=== PATIENT | male | born 1955 | race Caucasian/White ===

== ENCOUNTER 2017-08-19 10:09 | Inpatient (IN) ==
[2017-08-19] MEDS ORDERED: Sodium Bicarbonate 50 MEQ/50 ML VIAL IVC ONE (10:10)
[2017-08-19] MEDS ORDERED: Mannitol 25% vial 12.5 GM/50 ML VIAL IVP ONE (10:10)
[2017-08-19] MEDS ORDERED: Lidocaine 2% Syringe 100 MG/5 ML IV ONE (10:10)
[2017-08-19] MEDS ORDERED: *HR* Phenylephrine 10 MG/ML VIAL IVC ONE (10:10)
[2017-08-19] MEDS ORDERED: *HR* Magnesium Sulfate 2 GM/50 ML PIGGYBACK IVPB ONE (10:10)
[2017-08-19] MEDS ORDERED: Albumin Human 25% 25 GM/100 ML IV.SOLN IV ONE (10:10)
[2017-08-19] MEDS ORDERED: Heparin 1,000 UNITS/500 mL IV.SOLN IVC ONE (10:10)
[2017-08-19] MEDS ORDERED: 0.9 % Sodium Chloride 1,000 ML ONE ×2 (10:41→11:38)
[2017-08-19] MEDS: 0.9 % Sodium Chloride 1,000 ML IVC SCH (10:42)
[2017-08-19] MEDS ORDERED: Verapamil 5 MG/2 ML VIAL ONE (11:38)
[2017-08-19] MEDS ORDERED: Nitroglycerin 1,000 MCG/10 ML VIAL IV ONE (11:39)
[2017-08-19] MEDS ORDERED: *HR* Heparin 10,000 UNIT/10 ML VIAL ONE (11:39)
[2017-08-19] MEDS ORDERED: Heparin 1,000 UNITS/500 mL 500 ML ONE (11:39)
[2017-08-19] MEDS ORDERED: *HR* FentaNYL (PF) 100 MCG/2 ML VIAL ONE (12:11)
[2017-08-19] MEDS ORDERED: *HR* Midazolam HCl 2 MG/2 ML VIAL ONE ×2 (12:11→12:26)
--- NOTE | 2017-08-19 12:14 | Pre-Sedation Evaluation ---
Pre-sedation evaluation - Pre-sedation checklist Date of procedure: 08/19/17 Procedure: [facility] Recent Vitals: Last Vital Signs Temp 97 F L 08/19/17 10:31 Pulse 67 08/19/17 10:31 Resp 18 08/19/17 10:31 BP 137/94 08/19/17 10:31 Pulse Ox 94 08/19/17 10:31 H&P (including ROS) documented in medical record: Yes Previous reaction to sedatives/anesthetics: No Dietary Status: NPO after Midnight Dentition: No loose teeth or bridges, full dentition ASA Classification *see protocol: CLASS II-Mild systemic disease Plan of Care: Pt appropriate candidate for procedure/moderate/conscious sedation , Risks/benefits of procedure/sedation discussed w/ patient/family
--- NOTE | 2017-08-19 12:14 | History & Physical Report ---
Date of Encounter: 08/19/17 Time of Encounter: 12:30 24 Hour HP Update - Instructions Instructions: If the History and Physical is less than 30 days old and was completed prior to A.M. admission and or procedure and has NOT been updated on calendar day of procedure please complete this update prior to performing procedure. - Update Patient reports changes in Medical Condition: No Changes in examination, assessment, or condition: No Changes in Medication: No Preop tests/diagnostics Reviewed: Yes Surgery Remains Indicated: Yes Consent for Planned Operative Procedure(s) Verified: Yes
--- NOTE | 2017-08-19 13:21 | Discharge Summary ---
Outpatient Proc Discharge Plan - Plan Additional Instructions: RISK FACTORS: STOP SMOKING: If you smoke, STOP. Smoking or tobacco use significantly increases your risk of heart disease because nicotine causes the arteries to narrow or constrict. It also causes fats to stick to the artery. Your chances of having a heart attack are greatly increased if you continue to smoke. For more information, call the education line for smoking cessation 9-382-OQVHHKX EAT A LOW FAT/CHOLESTEROL/SODIUM DIET: This diet may help reduce your chances of having a heart attack. LIFTING: With affected extremity: Avoid bending, pushing off and lifting more than 2 pounds for 24 hours The following 48 hours, avoid lifting anything more than 5 pounds Avoid strenuous activity or repetitive motions ACTIVITY: You may walk or climb stairs as tolerated You can resume sexual activity as tolerated In general, you are encouraged to engage in a minimum of 30 minutes or more of moderate intensity physical activity, such as brisk walking, daily or at least 3 -4 times weekly BATHING Do not submerge the site into water (bath tub, hot tub, swimming pool, dishes) for 1 week. This can be a source for infection into the blood stream. You may shower after 24 hours SITE CARE: After 24 hours, you may remove the dressing and leave the site open to air. Keep the site clean and dry. Clean gently and pat dry. You can expect bruising and tenderness that gradually resolve within a week or two. Return to work as instructed per your physician Resume driving as instructed per physician Keep all scheduled follow up appointments Resume medications as instructed IMPORTANT: If prescribed a Platelet Aggregation Inhibitor such as, Plavix, Brilinta or Effient: Duration of therapy is minimum one year These medications are often used in combination with Aspirin in prevention of future heart attacks Never discontinue unless consult with your Farmworker [employer] STROKE (CVA) Risk factors for a stroke are: Age, cigarette smoking, diabetes, excessive alcohol consumption, family history, high blood pressure, overweight, physical inactivity, prior stroke, heart attack, diagnosis of carotid artery stenosis or other artery disease. Warning signs: Sudden numbness or weakness of the face, arm or leg; especially on one side of the body, sudden confusion, trouble speaking or understanding, sudden trouble seeing in one or both eyes, sudden trouble walking, dizziness, loss of balance or coordination, sudden severe headache with no cause. Call 911 or go to the Emergency Room. CONGESTIVE HEART FAILURE: If you have been diagnosed with Congestive Heart Failure (CHF) and your symptoms return, make an appointment with your physician Weigh yourself daily. Notify your physician if you have a weight gain of two or more pounds in one day or five or more pounds in one week. If you experience any difficulty breathing, please call 911 BLEEDING: Although the risk of bleeding is minimal, it can happen. If you have any bleeding from the site, apply firm pressure above the puncture site for 10-15 minutes. If the bleeding does not stop, continue manual pressure and call 911 Contact [facility] ( ) if: You develop a fever greater than 101 degrees Fahrenheit Your site becomes reddened or has any drainage You have an increase in pain or burning at the site or if a large knot forms at the site. If you experience chest pain, shortness of breath, dizziness, or extreme tiredness, stop the activity and rest. Please notify [facility] office if you experience any of these symptoms and they are not relieved by rest please call 911! Home Medications: LORazepam [Ativan] 1 mg PO BID PRN 08/19/17 [History] Meloxicam [Mobic] 15 mg PO DAILY 08/19/17 [History] Metoprolol [Lopressor] 25 mg PO BID 08/19/17 [History] Simvastatin [Zocor] 20 mg PO HS 08/19/17 [History] Venlafaxine [Effexor] 225 mg PO BID 08/19/17 [History]
--- NOTE | 2017-08-19 13:51 | Cardiothoracic Consult Note ---
Date of Encounter: 08/19/17 Time of Encounter: 13:47 Assessment and Plan (1) Coronary artery disease Current Visit: Yes Status: Acute The assessment and plan as outlined above was discussed with the patient and/or family members who expressed understanding and agreement. All questions were answered. The patient has left main disease and triple-vessel disease and is a candidate for coronary artery bypass grafting. Risks of surgery include , infection, bleeding, myocardial infarction, stroke, clots around the heart, renal or respiratory failure, acute or chronic graft closure, phrenic nerve injury and sternal dehiscence. The procedure, its risks, benefits and alternatives were explained and he wishes to consider. I will check a echocardiogram to assess bowel function. If he is agreeable, we can do his surgery tomorrow or Thursday. Qualifiers: Coronary Disease-Associated Artery/Lesion type: [place] artery [place] vs. transplanted heart: [place] heart Associated angina: with unstable angina Qualified Code(s): I25.110 - Atherosclerotic heart disease of [place] coronary artery with unstable angina pectoris - History of Present Illness History of present illness: Mr. Davidson is a 61 year old male The patient is a 61-year-old gentleman who will turn 62 on Thursday. He has been having daily chest pain and heaviness, which occurs with exertion and at rest. No known history of myocardial infarction. Cardiac catheterization done today revealed a 70% left main lesion. He has an 80% LAD lesion. His circumflex is 100 % and may or may not be graftable. His right coronary artery has a 80% blocked in the midportion, a 70% distal block in 100% block of the posterolateral branch. Past medical history is notable for no history of diabetes or hypertension. He does have a history of hypercholesterolemia, but has not been taking any medication for this. Family history is positive for coronary artery disease. Social history. He lives near [place] with his family. 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 He used to smoke, but quit 20 years ago. Does not drink alcohol. Review of systems is notable for hearing loss in both ears, which is worse in the left ear. He also has decreased vision in both eyes. No history of stroke or TIA. No history of saphenous vein varicosities or strippings. Past Med Surg Social Fam HX - Past Medical History Medical history: hyperlipidemia Psychiatric history: anxiety, depression - Past Surgical History Surgical History: orthopedic, other - Social History Smoking Status: Former smoker Alcohol use: none Drug use: none Medications and Allergies LORazepam [Ativan] 1 mg PO BID PRN 08/19/17 [History] Meloxicam [Mobic] 15 mg PO DAILY 08/19/17 [History] Metoprolol [Lopressor] 25 mg PO BID 08/19/17 [History] Simvastatin [Zocor] 20 mg PO HS 08/19/17 [History] Venlafaxine [Effexor] 225 mg PO BID 08/19/17 [History] 3 Allergy/AdvReac Type Severity Reaction Status Date / Time Penicillins Allergy Hives Verified 08/19/17 10:18 All Systems Review: A 10-system review of systems was performed and is negative for pertinent findings except as documented above in the HPI. Physical Examination Vital Signs, Last 4 Hours Temp Pulse Resp BP Pulse Ox 08/19/17 10:31 97 F L 67 18 137/94 94 Pupils are equal, round and reactive to light and accommodation. He is edentulous. Neck is supple. Trachea in the midline. No thyromegaly or carotid bruits. Lungs are clear to percussion and auscultation. Heart is in a regular rate and rhythm. Abdomen is benign. No tenderness, rebound or guarding. Extremities without edema. 2+ pulses. No saphenous vein varicosities or strippings. Cranial nerves, motor and sensory intact. He is awake, alert and oriented 3. Consult Discharge Plan - Plan Additional Instructions: RISK FACTORS: STOP SMOKING: If you smoke, STOP. Smoking or tobacco use significantly increases your risk of heart disease because nicotine causes the arteries to narrow or constrict. It also causes fats to stick to the artery. Your chances of having a heart attack are greatly increased if you continue to smoke. For more information, call the education line for smoking cessation 1-392-BNOXTGY EAT A LOW FAT/CHOLESTEROL/SODIUM DIET: This diet may help reduce your chances of having a heart attack. LIFTING: With affected extremity: Avoid bending, pushing off and lifting more than 2 pounds for 24 hours The following 48 hours, avoid lifting anything more than 5 pounds Avoid strenuous activity or repetitive motions ACTIVITY: You may walk or climb stairs as tolerated You can resume sexual activity as tolerated In general, you are encouraged to engage in a minimum of 30 minutes or more of moderate intensity physical activity, such as brisk walking, daily or at least 3 -4 times weekly BATHING Do not submerge the site into water (bath tub, hot tub, swimming pool, dishes) for 1 week. This can be a source for infection into the blood stream. You may shower after 24 hours SITE CARE: After 24 hours, you may remove the dressing and leave the site open to air. Keep the site clean and dry. Clean gently and pat dry. You can expect bruising and tenderness that gradually resolve within a week or two. Return to work as instructed per your physician Resume driving as instructed per physician Keep all scheduled follow up appointments Resume medications as instructed IMPORTANT: If prescribed a Platelet Aggregation Inhibitor such as, Plavix, Brilinta or Effient: Duration of therapy is minimum one year These medications are often used in combination with Aspirin in prevention of future heart attacks Never discontinue unless consult with your Senior Bookkeeper STROKE (CVA) Risk factors for a stroke are: Age, cigarette smoking, diabetes, excessive alcohol consumption, family history, high blood pressure, overweight, physical inactivity, prior stroke, heart attack, diagnosis of carotid artery stenosis or other artery disease. Warning signs: Sudden numbness or weakness of the face, arm or leg; especially on one side of the body, sudden confusion, trouble speaking or understanding, sudden trouble seeing in one or both eyes, sudden trouble walking, dizziness, loss of balance or coordination, sudden severe headache with no cause. Call 911 or go to the Emergency Room. CONGESTIVE HEART FAILURE: If you have been diagnosed with Congestive Heart Failure (CHF) and your symptoms return, make an appointment with your physician Weigh yourself daily. Notify your physician if you have a weight gain of two or more pounds in one day or five or more pounds in one week. If you experience any difficulty breathing, please call 911 BLEEDING: Although the risk of bleeding is minimal, it can happen. If you have any bleeding from the site, apply firm pressure above the puncture site for 10-15 minutes. If the bleeding does not stop, continue manual pressure and call 911 Contact [facility] ( ) if: You develop a fever greater than 101 degrees Fahrenheit Your site becomes reddened or has any drainage You have an increase in pain or burning at the site or if a large knot forms at the site. If you experience chest pain, shortness of breath, dizziness, or extreme tiredness, stop the activity and rest. Please notify [facility] office if you experience any of these symptoms and they are not relieved by rest please call 911! Referrals: Santa Richardson CNP [Primary Care Provider] - Segundo Fortune MD [Partnered Physician] - 09/11/17 3:30 pm (Follow up with Dr. Fortune in the [place] office. )
[2017-08-19] MEDS ORDERED: *HR* Heparin 5,000 UNIT/ML VIAL IVP PRN ×2 (14:45)
[2017-08-19] MEDS ORDERED: Heparin 25,000 UNIT/500 ML D5W 25,000 UNIT/500 ML BAG IVC SCH (14:45)
[2017-08-19] MEDS ORDERED: *HR* Heparin 5,000 UNIT/ML VIAL IVP ONE (14:45)
[2017-08-19] MEDS ORDERED: Clindamycin 900 MG/50 ML 900 MG/50 ML IV.SOLN IVPB ONE (14:46)
--- NOTE | 2017-08-19 15:59 | Invasive Diagnostic Lab Proc ---
Name: Cipriano Davidson Date of Study: 08/19/2017 Date: 1955 Ht: 68.0in Medical Record#: [id number] Age: 61 Wt: 223.55lb Gender: Male BSA: 2.14 Order #: [id number] BMI: 34 Physicians Procedure Physician: Segundo Fortune MD, [facility] Referring MD: Konstantin Referring MD: Staff Name Position Time In Orquidea Gaines RN [employer] Professor 12:00 PM Katherine Quiroga RT (R) Monitor 12:00 PM Saadia Cole RT Scrub 12:00 PM Indications Indication Abnormal Test - Stress Procedures Performed Procedure L HRT ARTERY/VENTRICLE ANGIO Pre-Procedure Checklist Informed consent is complete signed and on chart. H&P is on chart. ID band is on and ID verified with patient. Patient NPO for procedure The procedure was described for the patient and questions were answered. Blood Pressure: 137/94 ECG is on chart. Rhythm: NSR Plan of Care Patient will tolerate the procedure without complications. Adequate level of comfort will be maintained. Hemodynamics will remain stable Patient will recover from procedure without complications. Respiratory function will be maintained. Cardiac rhythm will remain stable. Patient temperature will be maintained. Patient and/or family have verbalized understanding of the procedure. Patient Education Chief Complaint/Reason for Test: Cardiac Cath Developmental Category: Adult (18-64 years) Developmentally Appropriate for Age: Yes Learning Barriers: None Education Needs: Procedure Education Method: Verbal Information Taught: Cardiac Cath Educational Evaluation: Able to repeat information Intravenous Access Time IV Size Location DC'd Fluid/Drip Rate Units RN 10:29 AM Started with 20g 1 1/4" Lt Antecubital 0.9NaCl 50 ml/hr Jamil Eric RN Allergies Penicillins Vital Signs Time BP (mmHg) HR (bpm) O2 Sat. RR (bpm) LOC 10:27 AM 137 / 94 65 94 % 14 5 = Fully awake and oriented or at pre-proc level 12:05 PM / % 5 = Fully awake and oriented or at pre-proc level 12:05 PM / % 5 = Fully awake and oriented or at pre-proc level 12:21 PM / % 4 = Oriented but drowsy 12:21 PM / % 4 = Oriented but drowsy 12:12 PM 168 / 88 75 96 % 21 12:17 PM 155 / 80 69 92 % 13 12:22 PM 164 / 80 62 95 % 13 12:27 PM 140 / 79 70 95 % 15 12:32 PM 122 / 76 67 94 % 15 12:45 PM 140 / 67 65 92 % 16 5 = Fully awake and oriented or at pre-proc level 01:00 PM 128 / 74 64 93 % 16 5 = Fully awake and oriented or at pre-proc level 01:15 PM 150 / 81 62 93 % 18 5 = Fully awake and oriented or at pre-proc level 01:30 PM 143 / 84 63 95 % 16 5 = Fully awake and oriented or at pre-proc level 01:45 PM 153 / 95 64 96 % 16 5 = Fully awake and oriented or at pre-proc level 02:06 PM 153 / 95 70 97 % 16 5 = Fully awake and oriented or at pre-proc level 02:22 PM 145 / 92 61 92 % 16 5 = Fully awake and oriented or at pre-proc level 02:44 PM 136 / 82 61 94 % 16 5 = Fully awake and oriented or at pre-proc level 03:00 PM 149 / 83 68 95 % 18 5 = Fully awake and oriented or at pre-proc level Procedural Medications Time Medication Dose Units Method Given By 12:13 PM Oxygen 2 L/min nasal cannula Orquidea Gaines RN 12:13 PM Versed 2 mg Intravenous Orquidea Gaines RN 12:14 PM Fentanyl 50 mcg Intravenous Orquidea Gaines RN 12:18 PM Oxygen 4 L/min nasal cannula Orquidea Gaines RN 12:24 PM Lidocaine 2% 0.5 ml Subcutaneous Segundo Fortune MD, FACC 12:26 PM Heparin 4000 units Nitroglycerin 200 mcg Verapamil 2.5 mg Intraarterial Segundo Fortune MD, FACC 12:26 PM Versed 1 mg Intravenous Orquidea Gaines RN 12:26 PM Fentanyl 25 mcg Intravenous Orquidea Gaines RN ASA Classification: CLASS II- Mild systemic disease (i.e. well-controlled diabetes, hypertension, asthma, cigarette smoking) Stephanie Score Preprocedure Postprocedure Activity 2- Moves 4 extremities sustained head lift Activity 2- Moves 4 extremities sustained head lift Circulation 2- SBP +/= 20 points of pre-anesthetic level Circulation 2- SBP +/= 20 points of pre-anesthetic level Consciousness 2- Awake and alert oriented x 3 Consciousness 2- Awake and alert oriented x 3 O2 Saturation 2- Able to maintain O2 satruation of 92% on room air O2 Saturation 2- Able to maintain O2 satruation of 92% on room air Respiratory 2- Able to deep breathe and cough well Respiratory 2- Able to deep breathe and cough well Total Score 10 Total Score 10 Contrast Agent: Isovue Diagnostic Contrast: 60 ml Total Contrast: 60 ml Fluoro Dose: 225 mGy Procedure Log Time Note Enter By 11:42 AM CathStat 12:00 PM Orquidea Gaines RN Position: [employer] Professor Time in: 12:00 [facility] 12:00 PM Katherine Quiroga RT (R) Position: Monitor Time in: 12:00 [facility] 12:00 PM Saadia Cole RT Position: Scrub Time in: 12:00 [facility] 12:00 PM Patient charges- Angio tray pack, Navilyst 3mm J, Pulse Oximetry and [facility] PM IV Supplies used: J loop Angio Cath. [facility] 12: PM Pt arrived to bed laborer 2 at 12:01 [facility] 12:05 PM Time: 12:05 Patient comfortable and pain free: Yes [facility] 12:05 PM Time: 12:05LOC: 5 = Fully awake and oriented or at pre-proc [facility] 12:08 PM Physician arrived 12:07 [facility] 12:08 PM Meet and greet completed [facility] 12:08 PM Sign in performed according to hospital policy. [facility] 12:08 PM Procedure start 12:08 [facility] 12:08 PM ASA Class CLASS II- Mild systemic disease (i.e. well-controlled diabetes, hypertension, asthma, cigarette smoking) [facility] 12:11 PM Vitals capture started with the following parameters, Patient=Adult, Interval=5 min, Initial Ojktvcrq=306 mmHg, Deflation Rate=5 mmHg, Cuff placed on Right Arm 12:11 PM Recorded ECG: HR=77 Condition=Condition 1 12:12 PM HR=75 bpm, XPNN=722/88 mmhg, SpO2=96.0 %, Resp=21 B/min, Comment=SR w/ PVC's 12:13 PM Time: 12:13 Oxygen on at 2 L/min per nasal cannula by Orquidea Gaines RN [facility] PM Time: 12: Versed 2 mg Intravenous Given by Orquidea Gaines RN [facility] 12:14 PM Time: 12:14 Fentanyl 50 mcg Intravenous Given by [facility]quidea [facility]aines [facility] 12:[facility] PM Time: 12:05 Patient comfortable and pain free: Yes [facility] 12:14 PM Time: 12:05LOC: 5 = Fully awake and oriented or at pre-proc level [facility] 12:14 PM Case Delayed No [facility] 12:15 PM Hair removed from procedure site in holding area using clippers. Right wrist and Right Groin prepped with Chloraprep by Katherine Quiroga RT (R), safety strap applied then patient was draped. Skin intact. [facility] 12:17 PM HR=69 bpm, FXXN=851/80 mmhg, SpO2=92.0 %, Resp=13 B/min, Comment=SR w/ PVC's 12:18 PM Time: 12:18 Oxygen on at 4 L/min per nasal cannula by Orquidea Gaines RN [facility] 12:21 PM Time: 12:20 Patient comfortable and pain free: Yes [facility] 12: PM Time: 12:21LOC: 4 = [facility]ed [facility]y [facility] 12:22 PM HR=62 bpm, XCXC=205/80 mmhg, SpO2=95.0 %, Resp=13 B/min, Comment=SR 12:22 PM Pressure channel 1 zeroed. 12:24 PM Time out performed according to hospital policy 12: PM Time: 12:24 0.5 ml Lidocaine 2% to right radial Subcutaneous Given by Segundo Fortune MD, [facility] 12:25 PM Access obtained by percutaneous puncture. 6Fr 10cm Terumo Glidesheath sheath placed in right Radial artery. [id number] [facility] 12: PM Time: 12: Patient given 4,000 units Heparin, 200 mcg Nitroglycerin, and 2.5 mg Verapamil Intraarterial by Segundo Fortune MD, [facility]. This is given to reduce risk of vessel spasm and thrombosis. [facility] 12: PM 0.035 260cm Navilyst 3mmJ wire [id number] [facility] 12: PM 5Fr TIG catheter inserted over the wire [facility] : PM Time: : Versed 1 mg Intravenous Given by Orquidea Gaines RN [facility] 12:26 PM Time: 12:26 Fentanyl 25 mcg Intravenous Given by Orquidea Gaines RN [facility] 12:27 PM wire removed. tsoummers 12:27 PM HR=70 bpm, MLNY=100/79 mmhg, SpO2=95.0 %, Resp=15 B/min, Comment=SR 12:27 PM Recorded Pressure: Ao, HR=76, Condition=Condition 1 (Aorta) Ao 98/68/83 12:28 PM RCA angiography performed in multiple views. [email or web address] 12:29 PM LCA angiography performed in multiple views. tsoummers 12:29 PM Recorded Pressure: Ao, HR=73, Condition=Condition 1 (Aorta) Ao 102/72/88 12:31 PM Lesion found in Mid RCA. Pre Stenosis: 90 Pre RAFFY Flow: tsoummers 12:31 PM Lesion found in LMCA. Pre Stenosis: 70 Pre RAFFY Flow: tsoummers 12:31 PM Catheter removed tsoummers 12:31 PM 5Fr Pigtail catheter inserted over the wire DNC tsoummers 12:32 PM Lesion found in Distal RCA. Pre Stenosis: 80 Pre RAFFY Flow: tsoummers 12:32 PM Lesion found in Proximal RCA. Pre Stenosis: 50 Pre RAFFY Flow: tsoummers 12:32 PM Recorded Pressure: LV, HR=70, Condition=Condition 1 (Left Ventricle) LV 103/49/38 12:32 PM HR=67 bpm, GKVI=109/76 mmhg, SpO2=94.0 %, Resp=15 B/min 12:32 PM Recorded Pressure: LV, HR=83, Condition=Condition 1 (Left Ventricle) LV 123/5/8 12:32 PM Catheter selectively placed in left ventricle tsoummers 12:32 PM Bolus angiogram of left Ventricle complete: 10 ml/sec for a total of 30 mls tsoummers 12:33 PM Recorded Pressure: LV, Ao, HR=77, Condition=Condition 1 (Left Ventricle) LV 121/13/8, (Aorta) Ao 116/58/84 12:33 PM Catheter removed tsoummers 12:33 PM Coronary Dominance: right tsoummers 12:34 PM Lesion found in Mid LAD. Pre Stenosis: 80 Pre RAFFY Flow: tsoummers 12:34 PM Lesion found in Distal LAD. Pre Stenosis: 60 Pre RAFFY Flow: tsoummers 12:34 PM Lesion found in Mid Circumflex. Pre Stenosis: 100 Pre RAFFY Flow: tsoummers 12:36 PM Lesion found in Right PLB. Pre Stenosis: 100 Pre RAFFY Flow: tsoummers 12:36 PM Time: 12:21LOC: 4 = Oriented but drowsy tsoummers 12:36 PM Time: 12:21 Patient comfortable and pain free: Yes tsoummers 12:36 PM Procedure completed at 12:36 tsoummers 12:37 PM Sign out completed: Radiation Dose 225.18 mGy Fluoro Time: 1.6 Isovue 370 - 200ml contrast 60 ml given by Segundo Fortune MD, [facility]. Complications: NoneCardiac Rehab Consult needed: YesConfirmed administered medications: Yes tsoummers 12:37 PM Conversation between Interventionalist and CT Surgeon. tsoummers 12:37 PM Isovue 370 - 200ml,1 Bottle(s) used. tsoummers 12:37 PM Arterial sheath pulled, Vasc Band closure device used and was Successful S/N. tsoummers 12:37 PM 9 ml air in Vasc Band. tsoummers 12:37 PM Estimated Blood Loss: minimal tsoummers 12:37 PM Post ECG NSR tsoummers 12:38 PM Post Blood Pressure 122/76 tsoummers 12:39 PM 12:39 Post Pulses Rt Radial 1+ tsoummers 12:39 PM Information taught Cardiac Cath tsoummers 12:39 PM Education needs Procedure, Plan of Care, and Responsibilities of Patient in Care tsoummers 12:39 PM Learning barriers :None tsoummers 12:39 PM Education Methods Verbal tsoummers 12:39 PM Education evaluation Able to repeat information tsoummers 12:39 PM Site status No bleeding/hematoma - Rt Wrist as reported by Saadia Cole RT at 12:39 tsoummers 12:40 PM Report given to Martina GAMEZ Pt taken to Holding room Room #4. 12:40 tsoummers 12:40 PM Plavix, Effient or Brilinta given No tsoummers 12:40 PM Delay to floor No tsoummers 12:40 PM Family placed in consult room. tsoummers 12:40 PM Patient out of room: 12:40 tsoummers 12:40 PM Complications: None [facility] 12:40 PM Fluoro Time: 1.6 [facility] 12:40 PM Isovue 370 - 200ml contrast 60 ml given by Segundo Fortune MD, [facility]. [facility] 12:40 PM Radiation Dose 225.18 mGy [facility] 12:41 PM Left Main Coronary Artery with 70% [facility] 12[facility] PM Mid/Distal Left Anterior Descending Coronary Artery and diagonal branches with 80% stenosis. If graft is supplying this area, 0 % stenosis [facility] 12:42 PM Circumflex, Obtuse Marginal, Left Posterior Descending, and Left Posterolateral Coronary Arteries with 100 % stenosis. If graft is supplying this area, 0 % stenosis [facility] 12:42 PM Right Coronary, Right Posterior Descending Arteries with Right Posterolateral and Acute Marginal branches with 100 % stenosis. If graft is supplying this area, 0 % stenosis [facility] 12:[address] Ward [facility] 01:[address] Ward at bedside, requests stat echo. Bea from non invasive notified [email or web address] 01:52 PM family remains at bedside [email or web address] 02:05 PM Activity: 2 Circulation: 2 Consciousness: 2 O2 Saturation: 2 Respiration: 2 [email or web address] 02:05 PM Patient ambulated with assistance. Insertion site without bleeding or hematoma. Pulses unchanged. [email or web address] 02:21 PM Alysha at bedside doing echo [email or web address] 03:07 PM PCXR taken [email or web address] 03:07 PM Colleen, RN at bedside [email or web address] 03:07 PM vb removed, dressing applied [email or web address] 03:46 PM Delay to floor Bed availability [email or web address] 03:46 PM Complications: None [email or web address] 03:46 PM Report given to Spencer GAMEZ Pt taken to Holding room Room #2ne 25. 15:46 [email or web address] 03:46 PM Patient out of room: 15:46 [email or web address] Complications Complication None None Hemodynamics Pressures Site Systolic/A Wave Diastolic/V Wave Mean AO 98 68 83 AO 102 72 88 LV 103 49 38 LV 123 5 8 LV 121 13 8 AO 116 58 84 Post Procedure Information Blood Pressure: 122/76 mmHg Rhythm: NSR Post procedural instructions were given Surgery consult for CABG Closure Device Time Device Success/Fail 08/19/2017 12:37:00 PM Mechanical Compression Successful Site Checks Time Location Status Staff Sheath In? Note 12:39 PM Rt Wrist No bleeding/hematoma Saadia Cole RT 12:45 PM Rt Wrist No bleeding/ No Hematoma Jamil Eric RN Vasc band in place. 01:00 PM Rt Wrist No bleeding/ No Hematoma Jamil Eric RN Vasc band in place. 01:15 PM Rt Wrist No bleeding/ No Hematoma Jamil Eric RN 2 ml air deflated. 01:30 PM Rt Wrist No bleeding/ No Hematoma Martina Fernandez RN 01:45 PM Rt Wrist No bleeding/ No Hematoma Martina Fernandez RN 2cc air deflated 02:05 PM Rt Wrist No bleeding/ No Hematoma Martina Fernandez RN 2cc air deflated 02:21 PM Rt Wrist No bleeding/ No Hematoma Martina Fernandez RN 2cc air deflated 02:44 PM Rt Wrist No bleeding/ No Hematoma Martina Fernandez RN 1cc air deflated, vb empty 03:00 PM Rt Wrist No bleeding/ No Hematoma Jamil Eric RN Vasc band off, dressing d/i 03:45 PM Rt Wrist No bleeding/ No Hematoma Jamil Eric RN Dressing d/i Pulses Time Site Pre-Procedure Post-Procedure Note 08/19/2017 10:29:00 AM Bilateral radial 2+ 08/19/2017 10:29:00 AM Bilateral DP & PT 2+ 12:39:00 PM Rt Radial 1+ 08/19/2017 12:45:00 PM Rt Radial 1+ 08/19/2017 1:51:00 PM Rt Radial 1+ 08/19/2017 2:22:00 PM Rt Radial 2+ 08/19/2017 2:44:00 PM Rt Radial 2+ 08/19/2017 3:00:00 PM Rt Radial 2+ Updated by Martina Fernandez RN on 08/19/2017 3:46:44 PM electronically signed on 08/19/2017 3:53:39 PM with status of Final
[2017-08-19 16:36] LABS: Basophils # 0.1 K/mcL (0.0-0.2); Basophils % 0.7 %; Eosinophils # 0.4 K/mcL (0.0-0.6); Eosinophils % 5.1 %; Hematocrit 41.3 % (37.5-50.1); Immature Granulocytes % 0.3 % (0-4); Lymphocytes # 1.7 K/mcL (0.6-4.6); Lymphocytes % 25.3 %; Mean Corpuscular HGB Conc 33.9 g/dL (31.6-35.5); Mean Corpuscular Volume 85.5 fL (83.0-100.0); Mean Platelet Volume 10.4 fL (9.4-12.4); Monocytes # 0.8 K/mcL (0.0-1.3); Monocytes % 11.2 %; Platelet Count 263 K/mcL (140-400); Red Blood Count 4.83 M/mcL (4.19-5.50); Red Cell Distribution Width 13.4 % (11.5-14.5); Segmented Neutrophils % 57.4 %
[2017-08-19 16:39] LABS: INR 1.1; Prothrombin Time 12.3 Seconds (9.4-12.1)
[2017-08-19 16:41] LABS: Activated Partial Thrombo Time 28.6 Seconds (26.0-36.0)
[2017-08-19 16:42] LABS: Calcium 8.8 mg/dL (8.6-10.3); Carbon Dioxide 26 mEq/L (23-29); Chloride 107 mEq/L (98-107); Potassium 3.6 mEq/L (3.5-5.1); Sodium 137 mEq/L (136-145)
[2017-08-19 16:48] LABS: BUN/Creatinine Ratio 21 (6-26); Blood Urea Nitrogen 18 mg/dL (8-23); Chol/HDL Ratio 6.5 (0-4.9); Cholesterol 203 mg/dL (< 200); Glucose 112 mg/dL (70-105); HDL Cholesterol 31 mg/dL (40-59); LDL Cholesterol,Calculated 126 mg/dL (0-99); Osmolality,Calculated 287 (280-300); Triglycerides 228 mg/dL (< 150); eGFR For African Americans > 60 (> 60); eGFR For Non-African Americans > 60 (> 60)
[2017-08-19 16:56] LABS: Hemoglobin A1C 5.6 %
--- NOTE | 2017-08-19 17:08 | Anesthesia Evaluation PreOp ---
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: Denies Any Significant HX Other Medical History: Diabetes Type II Anesthesia History: No Prior Anesthetic Complications, Past Anesthesia (right shoulder, left ear) Alcohol Use: none Drug use: none Medications and Allergies Metoprolol [Lopressor] 25 mg PO BID 08/19/17 [History] 3 Allergy/AdvReac Type Severity Reaction Status Date / Time Penicillins Allergy Hives Verified 08/19/17 10:18 - Meds/Allergy Pre-op Review Medications Reviewed: Yes Allergies Reviewed: Yes Beta Blockers on Current Med List: Yes Anesthesia Results - Labs 08/19/17 16:13 08/19/17 16:13 - Imaging EKG: report reviewed Chest x-ray: report reviewed (ardiac silhouette is upper limits of normal. Mild prominence of interstitial markings. No focal consolidation. No pleural effusion. No pneumothorax. No acute bony abnormality.) Anesthesia Exam Selected Entries 08/19/17 16:13 Temperature 98.1 F Pulse Rate 66 Respiratory Rate 16 Blood Pressure 128/81 O2 Sat by Pulse Oximetry 95 Weight: 99kg - HEENT Pupil (Motor): EOMI Mallampati: II Teeth: Edentulous Oral Opening: Greater than 3 - SLOT FLOOR ATTENDANT LOC: Oriented SLOT FLOOR ATTENDANT Motor: Normal RUE, Normal LUE, Normal RLE, Normal LLE, Normal Face SLOT FLOOR ATTENDANT Sensory: Normal: RUE, LUE, RLE, LLE, Face - Cardiac Rhythm: Regular Murmur: None - Pulmonary Breath Sounds: bilateral Clear Respiratory Effort: Symmetrical Anesthesia Assess/Plan ASA Score: 4 Modified Camilla Scale for Level of Consciousness: Cooperative, oriented, and tranquil Anesthetic Plan: General Monitoring Plan: Standard Monitors, A-Line, PAC, FREDA Recovery Plan: ICU (agrees to GA, lines, FREDA and blood products.)
[2017-08-19] MEDS: Chlorhexidine Rinse 15 ML MOUTHWASH MM SCH (20:58)
[2017-08-20 00:54] LABS: Activated Partial Thrombo Time 131.5 Seconds (26.0-36.0)
[2017-08-20 01:02] LABS: Heparin anti-factor XA UFH 0.72 IU/mL (0.30-0.70)
[2017-08-20] MEDS: Chlorhexidine Rinse 15 ML MOUTHWASH MM SCH ×2 (05:31→19:56)
[2017-08-20] MEDS ORDERED: Verapamil 5 MG/2 ML VIAL ONE (06:40)
[2017-08-20] MEDS ORDERED: *HR* Rocuronium Bromide 50 MG/5 ML VIAL ONE (06:43)
[2017-08-20] MEDS ORDERED: *HR* Phenylephrine 10 MG/ML VIAL ONE (06:43)
[2017-08-20] MEDS ORDERED: *HR* Etomidate 20 MG/10 ML AMPUL IVP ONE (06:44)
[2017-08-20] MEDS ORDERED: Protamine Sulfate 250 MG/25 ML VIAL IVP ONE (06:44)
[2017-08-20] MEDS ORDERED: Tranexamic Acid 1,000 MG/10 ML VIAL ONE ×2 (06:44→09:27)
[2017-08-20] MEDS ORDERED: Famotidine 20 MG/2 ML VIAL ONE (06:44)
[2017-08-20] MEDS ORDERED: *HR* Midazolam HCl 5 MG/5 ML VIAL IVP ONE (06:53)
[2017-08-20] MEDS ORDERED: *HR* FentaNYL (PF) 1,000 MCG/20 ML VIAL ONE (06:53)
[2017-08-20] MEDS ORDERED: NiCARdipine 2.5 MG/10 ML Syringe IVPB ONE (06:57)
[2017-08-20] MEDS ORDERED: Nitroglycerin 25 MG/250 ML INFUS..BTL IVC ONE (06:57)
[2017-08-20] MEDS ORDERED: *HR* Metoprolol 5 MG/5 ML VIAL IVP ONE ×2 (07:31→11:21)
[2017-08-20] MEDS ORDERED: Norepinephrine 4 MG in D5% in Water 250 ML IVC PRN (07:45)
[2017-08-20] MEDS ORDERED: Dextrose 50 % in Water (Vial) 30 ML, Sodium Bicarbonate 20 MEQ, Potassium Chloride 15 M... TH ONE (07:45)
[2017-08-20] MEDS ORDERED: Insulin Human Regular 100 UNIT in 0.9 % Sodium Chloride 100 ML IV PRN (07:45)
[2017-08-20] MEDS ORDERED: Dextrose 50 % in Water (Vial) 30 ML, Sodium Bicarbonate 20 MEQ, Lidocaine 1% 5 ML, Insu... TH SCH (07:45)
[2017-08-20 08:07] LABS: ABG Base Excess -1 mEq/L (-2 to 3); ABG Chloride 105 mEq/L (98-107); ABG Glucose 128 mg/dL (60-95); ABG HCO3 25 mEq/L (21-27); ABG Ionized Calcium 1.22 mmol/L (1.15-1.35); ABG Oxygen Saturation 97 % (95-98); ABG PCO2 47 mmHg (35-45); ABG PH 7.34 pH Units (7.32-7.45); ABG PO2 101 mmHg (85-104); ABG TCO2 27 mEq/L (20-26)
[2017-08-20 09:16] LABS: ABG Base Excess -4 mEq/L (-2 to 3); ABG Chloride 107 mEq/L (98-107); ABG Glucose 166 mg/dL (60-95); ABG HCO3 22 mEq/L (21-27); ABG Ionized Calcium 1.03 mmol/L (1.15-1.35); ABG Oxygen Saturation 99 % (95-98); ABG PCO2 46 mmHg (35-45); ABG PH 7.29 pH Units (7.32-7.45); ABG PO2 155 mmHg (85-104); ABG TCO2 24 mEq/L (20-26)
[2017-08-20] MEDS ORDERED: Albumin Human 5% 50.0 GM/1,000 ML VIAL ONE (09:39)
--- NOTE | 2017-08-20 09:50 | Anesthesia Procedures ---
Date of Encounter: 08/20/17 Time of Encounter: 09:49 Procedures: Anesthesia - Arterial Line Consent obtained: written consent Time out performed: Yes Sedation: Versed (mg): 3 Sedation: Fentanyl (mcg): 150 Supplemental Oxygen via Nasal Cannula (L/min): 2 Local Anesthetic: Lidocaine 1% Amount of Anesthetic used (mls): 1 Size (Gauge): 20 Length (inches): 5 Technique Used: sterile prep, guide wire technique, direct puncture technique Post-Procedure: line taped into place, dry sterile dressing placed Patient tolerated procedure: well, no complications Complications: none Site: Radial L (attempt x 1) - Central Line Placement Right IJ Consent obtained: written consent Time out performed: Yes Patient placed on monitor/pulse ox: Yes prep: mask, gown, gloves Central line prep: Chlorhexidine scrub Ultrasound used for placement: Yes Technique: Seldinger Lumen Inserted: Introducer Post procedure: sutured in place, good blood return, all ports aspirated, flushed, capped, sterile dressing applied Patient tolerated procedure: well (attempt x 1 for introducer placement. [place] placed easily, no arrythmias with placement. Wedge approx 55cm)
[2017-08-20 09:54] LABS: ABG Base Excess -3 mEq/L (-2 to 3); ABG Chloride 101 mEq/L (98-107); ABG Glucose 226 mg/dL (60-95); ABG HCO3 23 mEq/L (21-27); ABG Ionized Calcium 0.97 mmol/L (1.15-1.35); ABG Oxygen Saturation 100 % (95-98); ABG PCO2 46 mmHg (35-45); ABG PH 7.31 pH Units (7.32-7.45); ABG PO2 536 mmHg (85-104); ABG TCO2 25 mEq/L (20-26)
[2017-08-20 10:51] LABS: ABG Base Excess 1 mEq/L (-2 to 3); ABG Chloride 101 mEq/L (98-107); ABG Glucose 233 mg/dL (60-95); ABG HCO3 26 mEq/L (21-27); ABG Ionized Calcium 0.94 mmol/L (1.15-1.35); ABG Oxygen Saturation 100 % (95-98); ABG PCO2 43 mmHg (35-45); ABG PO2 481 mmHg (85-104); ABG TCO2 28 mEq/L (20-26)
[2017-08-20 11:20] LABS: ABG Base Excess -2 mEq/L (-2 to 3); ABG Chloride 103 mEq/L (98-107); ABG Glucose 180 mg/dL (60-95); ABG HCO3 25 mEq/L (21-27); ABG Ionized Calcium 1.27 mmol/L (1.15-1.35); ABG Oxygen Saturation 99 % (95-98); ABG PCO2 46 mmHg (35-45); ABG PH 7.33 pH Units (7.32-7.45); ABG PO2 152 mmHg (85-104); ABG TCO2 26 mEq/L (20-26)
[2017-08-20] MEDS ORDERED: Naloxone 0.4 MG/ML INJ IVP PRN (11:37)
[2017-08-20] MEDS ORDERED: Ondansetron 4 MG/2 ML VIAL IVP PRN (11:37)
[2017-08-20] MEDS ORDERED: *HR* Promethazine 25 MG/ML VIAL IVP PRN (11:37)
[2017-08-20] MEDS ORDERED: Insulin Regular, Human 100 UNIT/ML IV PRN (11:37)
[2017-08-20] MEDS ORDERED: *HR* Dextrose 50 % in Water (Syg) 50 ML SYRINGE IVP PRN (11:37)
[2017-08-20] MEDS ORDERED: Potassium Chloride 40 MEQ/200 ML BAG IVPB PRN (11:37)
[2017-08-20] MEDS ORDERED: Insulin Human Regular 100 UNIT in 0.9 % Sodium Chloride 100 ML IVC SCH (11:45)
[2017-08-20] MEDS ORDERED: Norepinephrine 4 MG in D5% in Water 250 ML IVC SCH (11:45)
[2017-08-20] MEDS ORDERED: 0.9 % Sodium Chloride 1,000 ML IVC SCH (11:45)
[2017-08-20 12:15] LABS: Basophils % 0.2 %; Eosinophils # 0.2 K/mcL (0.0-0.6); Hematocrit 33.4 % (37.5-50.1); Immature Granulocytes % 0.7 % (0-4); Lymphocytes % 9.4 %; Mean Corpuscular HGB Conc 33.2 g/dL (31.6-35.5); Mean Corpuscular Hemoglobin 28.8 pg (28.0-33.3); Mean Corpuscular Volume 86.8 fL (83.0-100.0); Monocytes # 1.7 K/mcL (0.0-1.3); Monocytes % 8.1 %; Platelet Count 168 K/mcL (140-400); Red Blood Count 3.85 M/mcL (4.19-5.50); Red Cell Distribution Width 13.5 % (11.5-14.5); Segmented Neutrophils % 80.6 %
[2017-08-20 12:19] LABS: Hemoglobin 11.1 g/dL (12.9-16.9)
[2017-08-20 12:20] LABS: INR 1.5
[2017-08-20 12:26] LABS: Activated Partial Thrombo Time 29.7 Seconds (26.0-36.0)
[2017-08-20 12:32] LABS: BUN/Creatinine Ratio 20 (6-26); Blood Urea Nitrogen 14 mg/dL (8-23); Calcium 7.9 mg/dL (8.6-10.3); Carbon Dioxide 26 mEq/L (23-29); Chloride 107 mEq/L (98-107); Glucose 133 mg/dL (70-105); Magnesium 2.3 mg/dL (1.6-2.6); Osmolality,Calculated 288 (280-300); Potassium 3.7 mEq/L (3.5-5.1); Sodium 138 mEq/L (136-145); eGFR For African Americans > 60 (> 60); eGFR For Non-African Americans > 60 (> 60)
[2017-08-20 12:41] LABS: ABG Base Excess -1 mEq/L (-2 to 3); ABG HCO3 26 mEq/L (21-27); ABG Oxygen Saturation 99 % (95-98); ABG PCO2 48 mmHg (35-45); ABG PH 7.33 pH Units (7.32-7.45); ABG PO2 144 mmHg (85-104); ABG TCO2 27 mEq/L (20-26); Blood Gas Modality ASSIST CONTROL
--- NOTE | 2017-08-20 12:45 | Operative Note ---
Date of procedure: 08/20/17 Was there an student assistant present: Yes Naval Marine Engineer: Teddy Hernandez Estimated blood loss (cc): 500 Specimen: none Condition: critical Disposition: ICU Procedure in Detail: Preoperative diagnosis. Coronary artery disease. Postoperative diagnosis. Same. Procedures. Coronary artery bypass grafting 3 with the left internal mammary artery to the LAD and saphenous vein grafts to the posterolateral branch of the right coronary artery and intermediate branch of the circumflex coronary artery. Surgeon. Dr. Oh Ward. Asst. Teddy Hernandez. Anesthesia. Dr. Brian Jones. Patient is a 61-year-old gentleman who presented with daily angina that occurred at rest and with exertion. Cardiac catheterization revealed left main disease with triple-vessel disease and he was referred for surgery. He was brought to the operating room where he was prepped and draped in standard fashion. The right greater saphenous vein was harvested from the right ankle to the right groin through 2 small incisions using the scope. These incisions were subsequently closed using a deep layer of 0 Vicryl and a 2-0 Vicryl subcuticular stitch. Standard median sternotomy was performed. The left internal mammary artery retractor was inserted in the left internal mammary artery was harvested in standard fashion using the Bovie electrocoagulation. Following this, the mammary retractor was removed and the standard sternal industrial security analyst was inserted. Pericardium was opened in the midline and suspended with 2-0 silk stay sutures. Double pursestring of 20 Surg[place] was placed in the aorta for the aortic cannulation site. A pursestring of 20 Surgilon was placed in the right atrial appendage for the venous uptake. The patient was heparinized. The aorta was cannulated without difficulty. 2 stage venous uptake cannula was inserted through the right atrial appendage. Pursestring of 3-0 silk was placed in the aorta and the cardioplegia needle was inserted through here. This was also used as an active and passive aortic vent. The patient was placed on cardioplegia bypass and cooled to 34.6. The aorta was crossclamped and a liter of antegrade cardioplegia was given. Topical cooling with iced saline slush was also done. Attention was first turned to the right coronary artery. The posterior descending branch was too small and diffusely diseased for grafting. The posterolateral branch was dissected free with the [place] blade and opened with a [place] blade and the Harris scissors. This had a lumen of 1-1/2 mm with mild to moderate diffuse disease. A standard end-to-side anastomosis was constructed using the saphenous vein and a 7-0 Prolene. When this is completed, the patient received additional antegrade cardioplegia. Attention was turned to the circumflex. The obtuse marginal branch was too small and diffusely diseased for grafting. The intermediate branch was dissected free with the [place] blade and opened with a [place] blade and the Harris scissors. This had a lumen of 1+ 1/2 mm with mild to moderate diffuse disease. A standard end-to-side anastomosis was constructed using the saphenous vein and a 7-0 Prolene. When this is completed, the patient received the last dose of antegrade cardioplegia. The mammary pedicle was harvested. Tonsil clamp was placed distally and was divided with the Metzenbaum scissors. Distal end was tied off with 2-0 silk suture. The proximal end was trimmed and brought into the wound. It should be noted that the mammary artery itself was somewhat thickened. The LAD was dissected free with the [place] blade and opened with the [place] blade and the Harris scissors. It had a lumen of 1 and 1/2 millimeters with mild diffuse disease. A standard end-to-side anastomosis was constructed using the mammary artery and a 7-0 Prolene. When this completed, the previously placed bulldog clamp was removed. The cross-clamp was removed and rewarming was begun. A side-biting clamp was placed on the aorta and the cardioplegia needle was removed. 2 holes were made in the aorta using the [place] blade and the 4.4 mm aortic punch. 2 proximal anastomoses were constructed in standard fashion using the saphenous veins and 5-0 Prolene's. When this is completed, the side- biting clamp was removed. Grafts were de-aired using #25-gauge needle and the previously placed bulldog clamps were removed. Distal anastomoses were inspected and found to be hemostatic. Proximal anastomoses were marked with a marker from a Ray-Dominic sponge. A pair of ventricular pacing wires was left. A 32 angle chest tube to the left pleural space. A 32 angle chest tube to the pericardial well. A 42 mediastinal chest tube. The patient was weaned from bypass requiring no pressors for support. He was decannulated and protamine was given. Hemostasis was good and the hemodynamics were good. Pericardium was loosely closed with interrupted 2-0 silk sutures. Sternum was closed with #7 sternal wires in simple and [id number] fashion. We did use platelet rich and platelet poor plasma to the sternum and tissues above the sternum. Fascia was run with a #1 Vicryl. Subcutaneous tissues with a #2 Vicryl. Skin was closed with a #3-0 Vicryl. The patient tolerated the procedure well and was returned intensive care unit in satisfactory in critical condition. Total bypass time 78 minutes. Total cross-clamp time 47 minutes. He been cooled to 34.6.
[2017-08-20] MEDS: niCARdipine 40 MG/200 ML MLS IVC SCH ×2 (12:51→19:50)
[2017-08-20] MEDS: *HR* OxyCODONE/APAP 5/325 TABLET PO PRN ×3 (12:51→22:03)
[2017-08-20] MEDS: *HR* Morphine 2 MG/ML SYRINGE IVP PRN ×5 (12:51→22:58)
[2017-08-20] MEDS: Nitroglycerin 25 MG/250 ML INFUS..BTL IVC SCH ×2 (13:30→20:14)
[2017-08-20 15:18] LABS: ABG Base Excess 0 mEq/L (-2 to 3); ABG HCO3 26 mEq/L (21-27); ABG Oxygen Saturation 96 % (95-98); ABG PCO2 42 mmHg (35-45); ABG PH 7.39 pH Units (7.32-7.45); ABG PO2 86 mmHg (85-104); ABG TCO2 27 mEq/L (20-26); Blood Gas Modality ASSIST CONTROL; Blood Gas Pressure Support 8 cm H2O
[2017-08-20] MEDS: Clindamycin 900 MG/50 ML 900 MG/50 ML IV.SOLN IVPB SCH ×2 (16:20→22:58)
[2017-08-20] MEDS: Heparin 15,000 UNIT in 0.9 % Sodium Chloride 500 ML IV SCH (19:48)
[2017-08-20] MEDS: 0.9 % Sodium Chloride 1,000 ML IVC SCH (19:51)
[2017-08-21] MEDS: *HR* OxyCODONE/APAP 5/325 TABLET PO PRN ×5 (02:05→20:33)
[2017-08-21] MEDS: *HR* Morphine 2 MG/ML SYRINGE IVP PRN ×5 (03:23→23:00)
[2017-08-21 04:16] LABS: Basophils % 0.1 %; Eosinophils % 0.1 %; Hematocrit 35.2 % (37.5-50.1); Hemoglobin 11.7 g/dL (12.9-16.9); Immature Granulocytes % 0.3 % (0-4); Lymphocytes % 7.8 %; Mean Corpuscular HGB Conc 33.2 g/dL (31.6-35.5); Mean Corpuscular Hemoglobin 28.8 pg (28.0-33.3); Mean Corpuscular Volume 86.7 fL (83.0-100.0); Mean Platelet Volume 10.1 fL (9.4-12.4); Monocytes # 1.8 K/mcL (0.0-1.3); Monocytes % 13.7 %; Neutrophils # 10.5 K/mcL (1.6-8.9); Platelet Count 184 K/mcL (140-400); Red Blood Count 4.06 M/mcL (4.19-5.50)
[2017-08-21 04:31] LABS: BUN/Creatinine Ratio 22 (6-26); Blood Urea Nitrogen 16 mg/dL (8-23); Calcium 7.9 mg/dL (8.6-10.3); Carbon Dioxide 25 mEq/L (23-29); Chloride 105 mEq/L (98-107); Glucose 130 mg/dL (70-105); Magnesium 1.8 mg/dL (1.6-2.6); Osmolality,Calculated 283 (280-300); Potassium 4.1 mEq/L (3.5-5.1); Sodium 135 mEq/L (136-145); eGFR For African Americans > 60 (> 60); eGFR For Non-African Americans > 60 (> 60)
[2017-08-21 04:34] LABS: INR 1.2; Prothrombin Time 13.5 Seconds (9.4-12.1)
[2017-08-21 04:36] LABS: Activated Partial Thrombo Time 28.7 Seconds (26.0-36.0)
[2017-08-21] MEDS: Chlorhexidine Rinse 15 ML MOUTHWASH MM SCH ×2 (08:04→20:34)
--- NOTE | 2017-08-21 09:09 | Cardiothoracic Progress Note ---
Date of Encounter: 08/21/17 Time of Encounter: 09:06 - Assessment and plan (1) Coronary artery disease Current Visit: Yes Status: Acute We will discontinue the IV fluids, arterial line, Wallace-Sherif catheter and Higgins catheter. We will transfer the patient to the floor. We will start low-dose beta danny. Qualifiers: Coronary Disease-Associated Artery/Lesion type: [place] artery [place] vs. transplanted heart: [place] heart Associated angina: with unstable angina Qualified Code(s): I25.110 - Atherosclerotic heart disease of [place] coronary artery with unstable angina pectoris - Subjective Interval history: The patient is extubated and doing well. He complains of mild postoperative pain. Vital Signs, Last 4 Hours Temp Pulse Resp BP Pulse Ox 08/21/17 08:33 16 92 08/21/17 08:00 98.6 F 71 20 153/65 92 08/21/17 07:30 75 08/21/17 07:00 72 20 118/47 93 08/21/17 06:00 80 20 124/45 93 Oxgyen Flow Rate Oxygen Flow Rate (LPM) 4 Clinical Data, last 8 Hours Output, Chest Tube Drainage 10 Amount [Mediastinal #1] Output, Chest Tube Drainage 20 Amount [Mediastinal #1] Output, Chest Tube Drainage 30 Amount [Mediastinal #1] Output, Chest Tube Drainage 20 Amount [Mediastinal #1] Output, Chest Tube Drainage 10 Amount [Mediastinal #1] Output, Chest Tube Drainage 20 Amount [Mediastinal #1] Output, Chest Tube Drainage 10 Amount [Mediastinal #2] Output, Chest Tube Drainage 5 Amount [Mediastinal #2] Output, Chest Tube Drainage 0 Amount [Mediastinal #2] Output, Chest Tube Drainage 0 Amount [Mediastinal #2] Output, Chest Tube Drainage 5 Amount [Mediastinal #2] Output, Chest Tube Drainage 5 Amount [Mediastinal #2] Output, Chest Tube Drainage 20 Amount [Mediastinal #3] Output, Chest Tube Drainage 20 Amount [Mediastinal #3] Output, Chest Tube Drainage 20 Amount [Mediastinal #3] Output, Chest Tube Drainage 10 Amount [Mediastinal #3] Output, Chest Tube Drainage 0 Amount [Mediastinal #3] Output, Chest Tube Drainage 0 Amount [Mediastinal #3] Weight 08/19/17 08/20/17 08/21/17 23:59 23:59 23:59 Weight 98.8 kg Lungs are clear to percussion and auscultation. Heart is in a normal sinus rhythm. All incisions are healing well without signs of infection and the sternum is stable. Chest x-ray reveals atelectasis. Chest tube drainage is minimal and there is no air leak. - Labs 08/21/17 04:00 08/21/17 04:00 Lab Results, Last 24 hours 08/20/17 08/20/17 08/20/17 12:05 12:05 12:05 WBC 21.1 H D Hgb 11.1 L D Hct 33.4 L Plt Count 168 INR 1.5 APTT 29.7 D Sodium 138 Potassium 3.7 Chloride 107 Carbon Dioxide 26 BUN 14 Creatinine 0.70 Glucose 133 H Calcium 7.9 L Magnesium 2.3 08/21/17 08/21/17 08/21/17 04:00 04:00 04:00 WBC 13.4 H Hgb 11.7 L Hct 35.2 L Plt Count 184 INR 1.2 APTT 28.7 Sodium 135 L Potassium 4.1 Chloride 105 Carbon Dioxide 25 BUN 16 Creatinine 0.73 Glucose 130 H Calcium 7.9 L Magnesium 1.8 - VTE Documentation of Mechanical Device: Graduated compression elastic hosiery Consult Discharge Plan - Plan Additional Instructions: RISK FACTORS: STOP SMOKING: If you smoke, STOP. Smoking or tobacco use significantly increases your risk of heart disease because nicotine causes the arteries to narrow or constrict. It also causes fats to stick to the artery. Your chances of having a heart attack are greatly increased if you continue to smoke. For more information, call the education line for smoking cessation 4-767-UUCZPPU EAT A LOW FAT/CHOLESTEROL/SODIUM DIET: This diet may help reduce your chances of having a heart attack. LIFTING: With affected extremity: Avoid bending, pushing off and lifting more than 2 pounds for 24 hours The following 48 hours, avoid lifting anything more than 5 pounds Avoid strenuous activity or repetitive motions ACTIVITY: You may walk or climb stairs as tolerated You can resume sexual activity as tolerated In general, you are encouraged to engage in a minimum of 30 minutes or more of moderate intensity physical activity, such as brisk walking, daily or at least 3 -4 times weekly BATHING Do not submerge the site into water (bath tub, hot tub, swimming pool, dishes) for 1 week. This can be a source for infection into the blood stream. You may shower after 24 hours SITE CARE: After 24 hours, you may remove the dressing and leave the site open to air. Keep the site clean and dry. Clean gently and pat dry. You can expect bruising and tenderness that gradually resolve within a week or two. Return to work as instructed per your physician Resume driving as instructed per physician Keep all scheduled follow up appointments Resume medications as instructed IMPORTANT: If prescribed a Platelet Aggregation Inhibitor such as, Plavix, Brilinta or Effient: Duration of therapy is minimum one year These medications are often used in combination with Aspirin in prevention of future heart attacks Never discontinue unless consult with your Outer Diameter Grinder Tool STROKE (CVA) Risk factors for a stroke are: Age, cigarette smoking, diabetes, excessive alcohol consumption, family history, high blood pressure, overweight, physical inactivity, prior stroke, heart attack, diagnosis of carotid artery stenosis or other artery disease. Warning signs: Sudden numbness or weakness of the face, arm or leg; especially on one side of the body, sudden confusion, trouble speaking or understanding, sudden trouble seeing in one or both eyes, sudden trouble walking, dizziness, loss of balance or coordination, sudden severe headache with no cause. Call 911 or go to the Emergency Room. CONGESTIVE HEART FAILURE: If you have been diagnosed with Congestive Heart Failure (CHF) and your symptoms return, make an appointment with your physician Weigh yourself daily. Notify your physician if you have a weight gain of two or more pounds in one day or five or more pounds in one week. If you experience any difficulty breathing, please call 911 BLEEDING: Although the risk of bleeding is minimal, it can happen. If you have any bleeding from the site, apply firm pressure above the puncture site for 10-15 minutes. If the bleeding does not stop, continue manual pressure and call 911 Contact [facility] ( ) if: You develop a fever greater than 101 degrees Fahrenheit Your site becomes reddened or has any drainage You have an increase in pain or burning at the site or if a large knot forms at the site. If you experience chest pain, shortness of breath, dizziness, or extreme tiredness, stop the activity and rest. Please notify [facility] office if you experience any of these symptoms and they are not relieved by rest please call 911! Referrals: Santa Richardson CNP [Primary Care Provider] - Segundo Fortune MD [Partnered Physician] - 09/11/17 3:30 pm (Follow up with Dr. Fortune in the [place] office. )
[2017-08-21] MEDS ORDERED: Furosemide 20 MG/2 ML VIAL IVP ONE (09:10)
[2017-08-21] MEDS ORDERED: Ondansetron 4 MG/2 ML VIAL IVP PRN (10:07)
[2017-08-21] MEDS ORDERED: Naloxone 0.4 MG/ML INJ IVP PRN (10:07)
[2017-08-21] MEDS ORDERED: D5% in Water 1,000 ML IVC PRN (10:07)
[2017-08-21] MEDS ORDERED: *HR* Promethazine 25 MG/ML VIAL IVP PRN (10:07)
[2017-08-21] MEDS ORDERED: *HR* Dextrose 50 % in Water (Syg) 50 ML SYRINGE IVP PRN (10:07)
[2017-08-21] MEDS ORDERED: Dextrose Gel 15 GM/37.5 ML TUBE PO PRN ×2 (10:07)
[2017-08-21] MEDS: Insulin LISPRO 300 UNITS/3 ML VIAL SQ SCH ×3 (12:46→20:19)
--- NOTE | 2017-08-21 13:40 | Electrocardiograph Report ---
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
[2017-08-21] MEDS: *HR* Heparin 5,000 UNIT/ML VIAL SQ SCH (20:16)
[2017-08-21] MEDS: Heparin 15,000 UNIT in 0.9 % Sodium Chloride 500 ML IV SCH (21:58)
[2017-08-22] MEDS: *HR* OxyCODONE/APAP 5/325 TABLET PO PRN ×3 (01:38→18:52)
[2017-08-22] MEDS: *HR* Morphine 2 MG/ML SYRINGE IVP PRN ×4 (01:38→20:46)
[2017-08-22 03:54] LABS: Basophils % 0.2 %; Eosinophils # 0.1 K/mcL (0.0-0.6); Eosinophils % 0.8 %; Hematocrit 36.1 % (37.5-50.1); Hemoglobin 12.1 g/dL (12.9-16.9); Immature Granulocytes % 0.4 % (0-4); Lymphocytes # 1.3 K/mcL (0.6-4.6); Lymphocytes % 8.7 %; Mean Corpuscular HGB Conc 33.5 g/dL (31.6-35.5); Mean Corpuscular Hemoglobin 28.9 pg (28.0-33.3); Mean Corpuscular Volume 86.2 fL (83.0-100.0); Mean Platelet Volume 10.6 fL (9.4-12.4); Monocytes # 1.6 K/mcL (0.0-1.3); Neutrophils # 11.5 K/mcL (1.6-8.9); Platelet Count 178 K/mcL (140-400); Red Blood Count 4.19 M/mcL (4.19-5.50); Red Cell Distribution Width 13.9 % (11.5-14.5); Segmented Neutrophils % 78.9 %
[2017-08-22 04:13] LABS: BUN/Creatinine Ratio 19 (6-26); Blood Urea Nitrogen 13 mg/dL (8-23); Calcium 8.5 mg/dL (8.6-10.3); Carbon Dioxide 26 mEq/L (23-29); Chloride 104 mEq/L (98-107); Glucose 129 mg/dL (70-105); Osmolality,Calculated 282 (280-300); Potassium 3.8 mEq/L (3.5-5.1); Sodium 135 mEq/L (136-145); eGFR For African Americans > 60 (> 60); eGFR For Non-African Americans > 60 (> 60)
[2017-08-22] MEDS: Insulin LISPRO 300 UNITS/3 ML VIAL SQ SCH ×3 (08:02→17:09)
[2017-08-22] MEDS: Chlorhexidine Rinse 15 ML MOUTHWASH MM SCH ×2 (08:02→20:46)
--- NOTE | 2017-08-22 08:26 | Cardiothoracic Progress Note ---
Date of Encounter: 08/22/17 Time of Encounter: 08:24 - Assessment and plan (1) Coronary artery disease Current Visit: Yes Status: Acute The chest tubes were removed. We will check a stat portable chest x-ray. Qualifiers: Coronary Disease-Associated Artery/Lesion type: [place] artery [place] vs. transplanted heart: [place] heart Associated angina: with unstable angina Qualified Code(s): I25.110 - Atherosclerotic heart disease of [place] coronary artery with unstable angina pectoris - Subjective Interval history: The patient states that he slept poorly last night. He has mild postoperative pain. Vital Signs, Last 4 Hours Temp Pulse Resp BP Pulse Ox 08/22/17 07:40 98.2 F 83 20 134/83 95 08/22/17 04:34 98.1 F 92 22 127/81 94 Oxgyen Flow Rate Oxygen Flow Rate (LPM) 5 Clinical Data, last 8 Hours Output, Chest Tube Drainage 0 Amount [Mediastinal #1] Output, Chest Tube Drainage 0 Amount [Mediastinal #2] Output, Chest Tube Drainage 0 Amount [Mediastinal #3] Output, Urine Amount 0 Output, Urine Amount 420 Output, Urine Amount 450 Weight 08/20/17 08/21/17 08/22/17 23:59 23:59 23:59 Weight 100.7 kg Lungs are clear to percussion and auscultation. Heart is in a normal sinus rhythm with occasional unifocal PVC. All incisions are healing well without signs of infection and the sternum is stable. Chest tube drainage is minimal and there is no air leak. - Labs 08/22/17 03:35 08/22/17 03:35 Lab Results, Last 24 hours 08/22/17 08/22/17 03:35 03:35 WBC 14.6 H Hgb 12.1 L Hct 36.1 L Plt Count 178 Sodium 135 L Potassium 3.8 Chloride 104 Carbon Dioxide 26 BUN 13 Creatinine 0.67 L Glucose 129 H Calcium 8.5 L - VTE Documentation of Mechanical Device: Graduated compression elastic hosiery Consult Discharge Plan - Plan Additional Instructions: RISK FACTORS: STOP SMOKING: If you smoke, STOP. Smoking or tobacco use significantly increases your risk of heart disease because nicotine causes the arteries to narrow or constrict. It also causes fats to stick to the artery. Your chances of having a heart attack are greatly increased if you continue to smoke. For more information, call the education line for smoking cessation 7-909-CRGHDYI EAT A LOW FAT/CHOLESTEROL/SODIUM DIET: This diet may help reduce your chances of having a heart attack. LIFTING: With affected extremity: Avoid bending, pushing off and lifting more than 2 pounds for 24 hours The following 48 hours, avoid lifting anything more than 5 pounds Avoid strenuous activity or repetitive motions ACTIVITY: You may walk or climb stairs as tolerated You can resume sexual activity as tolerated In general, you are encouraged to engage in a minimum of 30 minutes or more of moderate intensity physical activity, such as brisk walking, daily or at least 3 -4 times weekly BATHING Do not submerge the site into water (bath tub, hot tub, swimming pool, dishes) for 1 week. This can be a source for infection into the blood stream. You may shower after 24 hours SITE CARE: After 24 hours, you may remove the dressing and leave the site open to air. Keep the site clean and dry. Clean gently and pat dry. You can expect bruising and tenderness that gradually resolve within a week or two. Return to work as instructed per your physician Resume driving as instructed per physician Keep all scheduled follow up appointments Resume medications as instructed IMPORTANT: If prescribed a Platelet Aggregation Inhibitor such as, Plavix, Brilinta or Effient: Duration of therapy is minimum one year These medications are often used in combination with Aspirin in prevention of future heart attacks Never discontinue unless consult with your Child Care Director STROKE (CVA) Risk factors for a stroke are: Age, cigarette smoking, diabetes, excessive alcohol consumption, family history, high blood pressure, overweight, physical inactivity, prior stroke, heart attack, diagnosis of carotid artery stenosis or other artery disease. Warning signs: Sudden numbness or weakness of the face, arm or leg; especially on one side of the body, sudden confusion, trouble speaking or understanding, sudden trouble seeing in one or both eyes, sudden trouble walking, dizziness, loss of balance or coordination, sudden severe headache with no cause. Call 911 or go to the Emergency Room. CONGESTIVE HEART FAILURE: If you have been diagnosed with Congestive Heart Failure (CHF) and your symptoms return, make an appointment with your physician Weigh yourself daily. Notify your physician if you have a weight gain of two or more pounds in one day or five or more pounds in one week. If you experience any difficulty breathing, please call 911 BLEEDING: Although the risk of bleeding is minimal, it can happen. If you have any bleeding from the site, apply firm pressure above the puncture site for 10-15 minutes. If the bleeding does not stop, continue manual pressure and call 911 Contact [facility] ( ) if: You develop a fever greater than 101 degrees Fahrenheit Your site becomes reddened or has any drainage You have an increase in pain or burning at the site or if a large knot forms at the site. If you experience chest pain, shortness of breath, dizziness, or extreme tiredness, stop the activity and rest. Please notify [facility] office if you experience any of these symptoms and they are not relieved by rest please call 911! Referrals: Santa Richardson CNP [Primary Care Provider] - Segundo Fortune MD [Partnered Physician] - 09/11/17 3:30 pm (Follow up with Dr. Fortune in the [place] office. )
[2017-08-22] MEDS ORDERED: Furosemide 20 MG/2 ML VIAL IVP ONE (08:30)
[2017-08-22] MEDS: *HR* Heparin 5,000 UNIT/ML VIAL SQ SCH ×2 (09:40→18:03)
[2017-08-23] MEDS: Insulin LISPRO 300 UNITS/3 ML VIAL SQ SCH ×5 (04:00→21:47)
[2017-08-23] MEDS: *HR* Morphine 2 MG/ML SYRINGE IVP PRN (04:33)
[2017-08-23 05:01] LABS: Basophils % 0.3 %; Eosinophils # 0.3 K/mcL (0.0-0.6); Hematocrit 34.4 % (37.5-50.1); Hemoglobin 11.3 g/dL (12.9-16.9); Immature Granulocytes % 0.5 % (0-4); Lymphocytes # 1.3 K/mcL (0.6-4.6); Lymphocytes % 11.5 %; Mean Corpuscular HGB Conc 32.8 g/dL (31.6-35.5); Mean Corpuscular Hemoglobin 28.7 pg (28.0-33.3); Mean Corpuscular Volume 87.3 fL (83.0-100.0); Mean Platelet Volume 10.9 fL (9.4-12.4); Monocytes # 1.1 K/mcL (0.0-1.3); Monocytes % 10.2 %; Neutrophils # 8.1 K/mcL (1.6-8.9); Nucleated Red Blood Cells 0.2 /100 WBC (0); Platelet Count 199 K/mcL (140-400); Red Blood Count 3.94 M/mcL (4.19-5.50); Red Cell Distribution Width 13.9 % (11.5-14.5); Segmented Neutrophils % 74.5 %
[2017-08-23 05:29] LABS: BUN/Creatinine Ratio 29 (6-26); Blood Urea Nitrogen 22 mg/dL (8-23); Calcium 8.3 mg/dL (8.6-10.3); Carbon Dioxide 24 mEq/L (23-29); Chloride 103 mEq/L (98-107); Glucose 207 mg/dL (70-105); Osmolality,Calculated 289 (280-300); Potassium 3.7 mEq/L (3.5-5.1); Sodium 135 mEq/L (136-145); eGFR For African Americans > 60 (> 60); eGFR For Non-African Americans > 60 (> 60)
[2017-08-23] MEDS: *HR* Heparin 5,000 UNIT/ML VIAL SQ SCH ×2 (07:25→16:47)
[2017-08-23] MEDS: Chlorhexidine Rinse 15 ML MOUTHWASH MM SCH ×2 (08:17→20:34)
[2017-08-23] MEDS: *HR* OxyCODONE/APAP 5/325 TABLET PO PRN ×4 (08:18→20:34)
--- NOTE | 2017-08-23 09:11 | Cardiothoracic Progress Note ---
Date of Encounter: 08/23/17 Time of Encounter: 09:09 - Assessment and plan (1) Coronary artery disease Current Visit: Yes Status: Acute Hopefully, the patient will be ready for discharge by Thursday or Thursday. Qualifiers: Coronary Disease-Associated Artery/Lesion type: [place] artery [place] vs. transplanted heart: [place] heart Associated angina: with unstable angina Qualified Code(s): I25.110 - Atherosclerotic heart disease of [place] coronary artery with unstable angina pectoris - Subjective Interval history: The patient has no complaints. He feels much better since his chest tubes were removed. Vital Signs, Last 4 Hours Temp Pulse Resp BP Pulse Ox 08/23/17 08:09 16 117/70 97 08/23/17 07:35 98 F 85 20 117/70 97 Oxgyen Flow Rate Oxygen Flow Rate (LPM) 4 Clinical Data, last 8 Hours Output, Urine Amount 700 Weight 08/21/17 08/22/17 08/23/17 23:59 23:59 23:59 Weight 100.7 kg 97.1 kg Lungs are clear to percussion and auscultation. Heart is in a normal sinus rhythm. All incisions are healing well without signs of infection and the sternum is stable. Chest x-ray done today reveals no pneumothorax. - Labs 08/23/17 04:30 08/23/17 04:30 Lab Results, Last 24 hours 08/23/17 08/23/17 04:30 04:30 WBC 10.9 Hgb 11.3 L Hct 34.4 L Plt Count 199 Sodium 135 L Potassium 3.7 Chloride 103 Carbon Dioxide 24 BUN 22 Creatinine 0.76 Glucose 207 H Calcium 8.3 L - VTE Documentation of Mechanical Device: Graduated compression elastic hosiery Consult Discharge Plan - Plan Additional Instructions: RISK FACTORS: STOP SMOKING: If you smoke, STOP. Smoking or tobacco use significantly increases your risk of heart disease because nicotine causes the arteries to narrow or constrict. It also causes fats to stick to the artery. Your chances of having a heart attack are greatly increased if you continue to smoke. For more information, call the education line for smoking cessation 9-919-JMQQXLG EAT A LOW FAT/CHOLESTEROL/SODIUM DIET: This diet may help reduce your chances of having a heart attack. LIFTING: With affected extremity: Avoid bending, pushing off and lifting more than 2 pounds for 24 hours The following 48 hours, avoid lifting anything more than 5 pounds Avoid strenuous activity or repetitive motions ACTIVITY: You may walk or climb stairs as tolerated You can resume sexual activity as tolerated In general, you are encouraged to engage in a minimum of 30 minutes or more of moderate intensity physical activity, such as brisk walking, daily or at least 3 -4 times weekly BATHING Do not submerge the site into water (bath tub, hot tub, swimming pool, dishes) for 1 week. This can be a source for infection into the blood stream. You may shower after 24 hours SITE CARE: After 24 hours, you may remove the dressing and leave the site open to air. Keep the site clean and dry. Clean gently and pat dry. You can expect bruising and tenderness that gradually resolve within a week or two. Return to work as instructed per your physician Resume driving as instructed per physician Keep all scheduled follow up appointments Resume medications as instructed IMPORTANT: If prescribed a Platelet Aggregation Inhibitor such as, Plavix, Brilinta or Effient: Duration of therapy is minimum one year These medications are often used in combination with Aspirin in prevention of future heart attacks Never discontinue unless consult with your Business Technology Professor STROKE (CVA) Risk factors for a stroke are: Age, cigarette smoking, diabetes, excessive alcohol consumption, family history, high blood pressure, overweight, physical inactivity, prior stroke, heart attack, diagnosis of carotid artery stenosis or other artery disease. Warning signs: Sudden numbness or weakness of the face, arm or leg; especially on one side of the body, sudden confusion, trouble speaking or understanding, sudden trouble seeing in one or both eyes, sudden trouble walking, dizziness, loss of balance or coordination, sudden severe headache with no cause. Call 911 or go to the Emergency Room. CONGESTIVE HEART FAILURE: If you have been diagnosed with Congestive Heart Failure (CHF) and your symptoms return, make an appointment with your physician Weigh yourself daily. Notify your physician if you have a weight gain of two or more pounds in one day or five or more pounds in one week. If you experience any difficulty breathing, please call 911 BLEEDING: Although the risk of bleeding is minimal, it can happen. If you have any bleeding from the site, apply firm pressure above the puncture site for 10-15 minutes. If the bleeding does not stop, continue manual pressure and call 911 Contact [facility] ( ) if: You develop a fever greater than 101 degrees Fahrenheit Your site becomes reddened or has any drainage You have an increase in pain or burning at the site or if a large knot forms at the site. If you experience chest pain, shortness of breath, dizziness, or extreme tiredness, stop the activity and rest. Please notify [facility] office if you experience any of these symptoms and they are not relieved by rest please call 911! Referrals: Santa Richardson CNP [Primary Care Provider] - Segundo Fortune MD [Partnered Physician] - 09/11/17 3:30 pm (Follow up with Dr. Fortune in the [place] office. )
[2017-08-24 03:33] LABS: Basophils % 0.4 %; Eosinophils # 0.5 K/mcL (0.0-0.6); Eosinophils % 5.8 %; Hemoglobin 11.2 g/dL (12.9-16.9); Immature Granulocytes % 0.4 % (0-4); Lymphocytes # 1.5 K/mcL (0.6-4.6); Lymphocytes % 16.2 %; Mean Corpuscular HGB Conc 32.9 g/dL (31.6-35.5); Mean Corpuscular Hemoglobin 28.7 pg (28.0-33.3); Mean Corpuscular Volume 87.2 fL (83.0-100.0); Mean Platelet Volume 10.6 fL (9.4-12.4); Monocytes # 1.1 K/mcL (0.0-1.3); Monocytes % 12.6 %; Neutrophils # 5.9 K/mcL (1.6-8.9); Platelet Count 228 K/mcL (140-400); Segmented Neutrophils % 64.6 %
[2017-08-24] MEDS: *HR* OxyCODONE/APAP 5/325 TABLET PO PRN ×4 (03:42→23:32)
[2017-08-24 03:53] LABS: BUN/Creatinine Ratio 29 (6-26); Blood Urea Nitrogen 23 mg/dL (8-23); Calcium 8.6 mg/dL (8.6-10.3); Carbon Dioxide 24 mEq/L (23-29); Chloride 103 mEq/L (98-107); Glucose 140 mg/dL (70-105); Osmolality,Calculated 284 (280-300); Potassium 3.9 mEq/L (3.5-5.1); Sodium 134 mEq/L (136-145); eGFR For African Americans > 60 (> 60); eGFR For Non-African Americans > 60 (> 60)
[2017-08-24] MEDS: *HR* Heparin 5,000 UNIT/ML VIAL SQ SCH ×2 (05:55→18:12)
[2017-08-24] MEDS: Chlorhexidine Rinse 15 ML MOUTHWASH MM SCH ×2 (09:30→20:05)
[2017-08-24] MEDS: Insulin LISPRO 300 UNITS/3 ML VIAL SQ SCH ×2 (09:31→15:43)
--- NOTE | 2017-08-24 09:34 | Cardiothoracic Progress Note ---
Date of Encounter: 08/24/17 Time of Encounter: 09:32 - Assessment and plan (1) Coronary artery disease Current Visit: Yes Status: Acute The patient is recovering well from his CABG 3. He is ambulating the hallways without difficulty. He will be discharged home in the next 1-2 days. The assessment and plan as outlined above was discussed with the patient and/or family members who expressed understanding and agreement. All questions were answered. Qualifiers: Coronary Disease-Associated Artery/Lesion type: [place] artery [place] vs. transplanted heart: [place] heart Associated angina: with unstable angina Qualified Code(s): I25.110 - Atherosclerotic heart disease of [place] coronary artery with unstable angina pectoris - Subjective Procedure(s) Performed: POD#4 S/P CABG3 Interval history: The patient remained hemodynamic stable overnight. He was ambulating yesterday in the hallways without difficulty. He has no complaints. Vital Signs, Last 4 Hours Temp Pulse Resp BP Pulse Ox 08/24/17 08:08 18 94 08/24/17 07:35 98.2 F 71 18 123/72 93 Oxgyen Flow Rate Oxygen Flow Rate (LPM) 4 Weight 08/22/17 08/23/17 08/24/17 23:59 23:59 23:59 Weight 97.1 kg - Physical Examination General: Conversant, No Apparent Distress Cardiac: Reg Rate and Rhythm, Normal S1 and S2, No Murmur Incision: No signs of infection, Dry/intact dressing Sternum: Stable Lungs: Normal Breath Sounds, No Wheeze, Rales, Rhonchi Neuro: Alert and responsive, No focal deficits noted Vascular: Normal capillary refill Extremities: No Clubbing, No Cyanosis, No Edema - Labs 08/24/17 03:25 08/24/17 03:25 Lab Results, Last 24 hours 08/24/17 08/24/17 03:25 03:25 WBC 9.1 Hgb 11.2 L Hct 34.0 L Plt Count 228 Sodium 134 L Potassium 3.9 Chloride 103 Carbon Dioxide 24 BUN 23 Creatinine 0.80 Glucose 140 H Calcium 8.6 - VTE Documentation of Mechanical Device: Graduated compression elastic hosiery Consult Discharge Plan - Plan Additional Instructions: RISK FACTORS: STOP SMOKING: If you smoke, STOP. Smoking or tobacco use significantly increases your risk of heart disease because nicotine causes the arteries to narrow or constrict. It also causes fats to stick to the artery. Your chances of having a heart attack are greatly increased if you continue to smoke. For more information, call the education line for smoking cessation 8-350-MRCUKHH EAT A LOW FAT/CHOLESTEROL/SODIUM DIET: This diet may help reduce your chances of having a heart attack. LIFTING: With affected extremity: Avoid bending, pushing off and lifting more than 2 pounds for 24 hours The following 48 hours, avoid lifting anything more than 5 pounds Avoid strenuous activity or repetitive motions ACTIVITY: You may walk or climb stairs as tolerated You can resume sexual activity as tolerated In general, you are encouraged to engage in a minimum of 30 minutes or more of moderate intensity physical activity, such as brisk walking, daily or at least 3 -4 times weekly BATHING Do not submerge the site into water (bath tub, hot tub, swimming pool, dishes) for 1 week. This can be a source for infection into the blood stream. You may shower after 24 hours SITE CARE: After 24 hours, you may remove the dressing and leave the site open to air. Keep the site clean and dry. Clean gently and pat dry. You can expect bruising and tenderness that gradually resolve within a week or two. Return to work as instructed per your physician Resume driving as instructed per physician Keep all scheduled follow up appointments Resume medications as instructed IMPORTANT: If prescribed a Platelet Aggregation Inhibitor such as, Plavix, Brilinta or Effient: Duration of therapy is minimum one year These medications are often used in combination with Aspirin in prevention of future heart attacks Never discontinue unless consult with your Data Warehouse Analyst STROKE (CVA) Risk factors for a stroke are: Age, cigarette smoking, diabetes, excessive alcohol consumption, family history, high blood pressure, overweight, physical inactivity, prior stroke, heart attack, diagnosis of carotid artery stenosis or other artery disease. Warning signs: Sudden numbness or weakness of the face, arm or leg; especially on one side of the body, sudden confusion, trouble speaking or understanding, sudden trouble seeing in one or both eyes, sudden trouble walking, dizziness, loss of balance or coordination, sudden severe headache with no cause. Call 911 or go to the Emergency Room. CONGESTIVE HEART FAILURE: If you have been diagnosed with Congestive Heart Failure (CHF) and your symptoms return, make an appointment with your physician Weigh yourself daily. Notify your physician if you have a weight gain of two or more pounds in one day or five or more pounds in one week. If you experience any difficulty breathing, please call 911 BLEEDING: Although the risk of bleeding is minimal, it can happen. If you have any bleeding from the site, apply firm pressure above the puncture site for 10-15 minutes. If the bleeding does not stop, continue manual pressure and call 911 Contact [facility] ( ) if: You develop a fever greater than 101 degrees Fahrenheit Your site becomes reddened or has any drainage You have an increase in pain or burning at the site or if a large knot forms at the site. If you experience chest pain, shortness of breath, dizziness, or extreme tiredness, stop the activity and rest. Please notify [facility] office if you experience any of these symptoms and they are not relieved by rest please call 911! Referrals: Santa Richardson CNP [Primary Care Provider] - 08/31/17 1:00 pm Segundo Fortune MD [Partnered Physician] - 09/11/17 3:30 pm (Follow up with Dr. Fortune in the [place] office. ) Oh Ward MD [Partnered Physician] - 09/17/17 1:15 pm
[2017-08-24] MEDS ORDERED: *HR* OxyCODONE Immed Rel 5 MG TABLET PO PRN ×2 (10:00)
[2017-08-25] MEDS: *HR* OxyCODONE/APAP 5/325 TABLET PO PRN ×2 (04:12→17:11)
[2017-08-25] MEDS: *HR* Heparin 5,000 UNIT/ML VIAL SQ SCH ×2 (06:23→17:11)
[2017-08-25] MEDS: Chlorhexidine Rinse 15 ML MOUTHWASH MM SCH (08:27)
--- NOTE | 2017-08-25 10:52 | Discharge Summary ---
Date of Encounter: 08/25/17 Time of Encounter: 10:42 - Discharge Diagnosis (1) Coronary artery disease Priority: Primary Status: Acute Qualifiers: Coronary Disease-Associated Artery/Lesion type: [place] artery [place] vs. transplanted heart: [place] heart Associated angina: with unstable angina Qualified Code(s): I25.110 - Atherosclerotic heart disease of [place] coronary artery with unstable angina pectoris - Discharge Medications Prescriptions: Aspirin 81 mg PO DAILY #60 tab.chew Metoprolol [Lopressor] 50 mg PO BID #60 tablet Simvastatin [Zocor] 40 mg PO HS #30 tablet Home Medications: Aspirin 81 mg PO DAILY #60 tab.chew 08/25/17 [Rx] Metoprolol [Lopressor] 50 mg PO BID #60 tablet 08/25/17 [Rx] Simvastatin [Zocor] 40 mg PO HS #30 tablet 08/25/17 [Rx] Allergies/Adverse Reactions: 3 Allergy/AdvReac Type Severity Reaction Status Date / Time Penicillins Allergy Hives Verified 08/19/17 10:18 Procedures/tests Complete & Pending: Procedures Performed prior 72 hours Category Date Time Status ECG 12 lead ECG [ECG] Routine Y 08/22/17 15:15 Completed EKG [ECG 12 lead ECG] [ECG] Routine Y 08/22/17 20:05 Completed Date of admission: 08/19/17 15:53 Primary care physician: Santa Richardson, Consults: 08/20/17 11:37 Consult to Cardiac Rehabilitation-Phase1 [CONS] Routine Comment: Reason for Consult: Post open heart Call Completed: Yes Consult to Middle School Band Teacher [CONS] Routine Reason for SW Consult: open heart 08/21/17 10:07 Consult for Pharmacy Education [CONS] Routine Reason for Consult: Post-Op Heart Call Completed: Yes Consult to Occupational Therapy [CONS] Routine Comment: Evaluate, develop and implement POC Reason for Consult: Post-Op Heart Consult to Physical Therapy [CONS] Routine Comment: Evaluate, develop and implement POC Reason for Consult: Post open heart Procedure(s) Performed: August 20, 2016. Coronary artery bypass grafting 3, utilizing the left internal mammary artery. Discharging clinician: Oh Ward Anticipated date of discharge: 08/25/17 - Patient Status Disposition: Home, Self-Care Functional capacity at discharge: independent ambulation Overall status at discharge: patient is progressing back to baseline - Discharge Instructions Follow Up With: Santa Richardson CNP [Primary Care Provider] - 08/31/17 1:00 pm Segundo Fortune MD [Partnered Physician] - 09/11/17 3:30 pm (Follow up with Dr. Fortune in the [place] office. ) Oh Ward MD [Partnered Physician] - 09/17/17 1:15 pm - Hospital Course Hospital course: Mr. Davidson is a 62 year old male The patient is a 61-year-old gentleman who turned 62 while in the hospital. He presented with daily chest pain and angina. Cardiac catheterization revealed a 70% left main lesion and triple-vessel disease. On August 20, 2017, I took him to the operating room for coronary artery bypass grafting 3, utilizing his left internal mammary artery. Chest tubes were removed on August 21. Initial chest x-ray revealed a tiny apical pneumothorax. This resolved on subsequent chest x-ray. The patient otherwise did well was discharged on August 25, 2017. At that time he was afebrile. Lungs were clear to percussion and auscultation. Heart was in a normal sinus rhythm. He was given a prescription for Percocet for pain. I did check the [place] automated Rx reporting system. His postoperative and was given a 7 week supply. Appropriate precautions were given. The other medications are on the med rec. He was to return to his previous and regular diet. He was to avoid heavy lifting for a total of 3 months after surgery, but to walk as much as possible. He was to avoid driving for 1 month. He was to follow-up and see me in the office in 4 weeks as directed. He is to follow-up with his telecasting engineer and family doctor as directed. He was to call sooner for any difficulties. - Time Spent with Patient Total time spent providing and/or coordinating discharge services: Physical Examination Vital Signs, Last 4 Hours Temp Pulse Resp BP Pulse Ox 08/25/17 09:55 76 08/25/17 09:42 76 14 117/80 97 08/25/17 08:09 14 94 08/25/17 07:39 98.2 F 80 15 126/70 94 Open Heart Registry Aspirin Cont/Prescribed at DC: Yes Beta Latosha Cont/Prescribed at DC: Yes Statin Cont/Prescribed at DC: Yes GIANLUCA/ARB Cont/Prescribed at DC: Not indicated - VTE Documentation of Mechanical Device: Graduated compression elastic hosiery
[2017-08-25 16:23] VITALS: BP 122/77
--- NOTE | 2017-08-25 17:08 | Electrocardiograph Report ---
[address] [address] Test Date: 2017-08-22 Pat Name: Cipriano Davidson Department: 110 Room: 2N05 Gender: M Mixer Driver: MAIRA : 1955 Requested By: Oh Ward Order Number: [id number] Reading MD: Teddy Mane Measurements Intervals [place] Rate: 82 P: 23 AK: 206 QRS: 27 QRSD: 108 T: 0 QT: 374 QTc: 412 Interpretive Statements SINUS RHYTHM WITH OCCASIONAL VENTRICULAR PREMATURE COMPLEXES WITH OCCASIONAL SUPRAVENTRICULAR PREMATURE COMPLEXES INFERIOR MYOCARDIAL INFARCTION, OF INDETERMINATE AGE Electronically Signed On 08-25-2017 17:07:23 EST by Teddy Mane
--- NOTE | 2017-08-25 17:17 | Electrocardiograph Report ---
[address] [address] Test Date: 2017-08-22 Pat Name: Cipriano Davidson Department: 110 Room: 05 Gender: M Resistor Coater: : 1955 Requested By: Oh Ward Order Number: [id number] Reading MD: Teddy Mane Measurements Intervals [place] Rate: 90 P: -1 KS: 184 QRS: 23 QRSD: 108 T: -26 QT: 355 QTc: 402 Interpretive Statements SINUS RHYTHM INFERIOR MYOCARDIAL INFARCTION, OF INDETERMINATE AGE Electronically Signed On 08-25-2017 17:15:40 EST by Teddy Mane
== END 2017-08-25 17:50 | disposition home or self-care (01) | DRG 234 ==
LOC: EDBD → INVDIALAB 10:09 → 2NENU 15:53 → ICNU 08-20 07:28 → 2NNU 08-21 20:12
PROVIDERS: ADMIT Emergency Medicine; ATTEND Thoracic Surgery (Cardiothoracic Vascular Surgery)

== ENCOUNTER 2017-10-29 09:26 | Observation (INO) ==
--- NOTE | 2017-10-29 09:31 | Emergency Department Note ---
Disposition Clinical Impression: Abnormal EKG Chest pain Qualifiers: Chest pain type: unspecified Qualified Code(s): R07.9 - Chest pain, unspecified Dyspnea Qualifiers: Dyspnea type: unspecified Qualified Code(s): R06.00 - Dyspnea, unspecified Disposition: Admitted As Inpatient Condition: Good Referrals: Santa Richardson CNP [Primary Care Provider] - Forms: ED Satisfaction Letter Time of Disposition: 11:50 Chest Pain HPI - General Chief Complaint: ED Chest Pain Stated Complaint: CP/FEI Time Seen by Provider: 10/29/17 09:30 Source: patient Mode of arrival: ambulatory Limitations: no limitations Vital Signs Reviewed: Yes Nursing Notes Reviewed: Yes - History of Present Illness HPI Narrative: Patient is a 62-year-old male with recent triple bypass by Dr. Ward in July 2017, hypertension, high cholesterol, previous smoker. He presents today due to chest pain and shortness of breath. He says that the chest pain is located at the superior aspect of the center of his chest and radiates to his left chest. He describes it as a sharp pressure. He notices it with movement of his upper extremities. However, he does also occur when he is at rest. He does not think that it occurs with exertion. He does have shortness of breath associated both during and without the chest pain occurring at the same time. Denies any other fevers, nausea, vomiting, productive cough, abdominal pain. He does admit to left leg swelling but no calf pain. Denies any previous history of DVT or PE. - Related Data Previous Rx's Medication Instructions Recorded Aspirin 81 mg PO DAILY #60 tab.chew 08/25/17 Metoprolol [Lopressor] 50 mg PO BID #60 tablet 08/25/17 Simvastatin [Zocor] 40 mg PO HS #30 tablet 08/25/17 Allergies Allergy/AdvReac Type Severity Reaction Status Date / Time Penicillins Allergy Hives Verified 10/29/17 09:28 All systems ED: reviewed and negative except as stated. Constitutional: Denies: fever Cardiovascular: Reports: chest pain, dyspnea on exertion Respiratory: Reports: dyspnea. Denies: cough Gastrointestinal: Reports: constipation. Denies: abdominal pain, nausea, vomiting, diarrhea Integumentary: Denies: rash Neurological: Denies: weakness, numbness, paresthesias Chest Pain PMH - Past Medical History Medical history: Reports: hyperlipidemia, other Surgical history: Reports: orthopedic, other Psychiatric history: Reports: anxiety, depression - Social History Smoking Status: Former smoker Alcohol use: Reports: none Drug use: Reports: none Physical Exam - General Limitations: no limitations General appearance: alert, in no apparent distress - Head Head exam: atraumatic, normocephalic, normal inspection - Eye Eye exam: Present: normal appearance, PERRL, EOMI - ENT ENT exam: normal exam, normal oropharynx, mucous membranes moist - Neck Neck exam: Present: normal inspection, full ROM, trachea midline - Chest Chest inspection: Present: symmetric chest wall rise, other (Midline chest scar , well healing, no erythema or pus drainage). Absent: tenderness, rash - Respiratory Respiratory exam: Present: normal lung sounds bilaterally - Cardiovascular Cardiovascular exam: Present: regular rate, normal rhythm, normal heart sounds - Abdominal Exam Abdominal exam: Present: soft, Non-Tender. Absent: tenderness, distention, guarding, rebound, rigidity - Extremities Exam Extremities exam: Present: full ROM, pedal edema (Very mild swelling of the left lower extremity but no calf pain, +2 over 40 tibial pulses bilaterally.). Absent: tenderness - Neurological Exam Neurological exam: Present: alert, oriented X3 - Psychiatric Psychiatric exam: Present: normal affect, normal mood - Skin Skin exam: Present: warm, dry, intact, normal color Course Course Narrative: Patient was mildly hypertensive on presentation. Otherwise, the rest of the vitals were within normal limits. Physical exam shows heart regular rate and rhythm, lungs clear to auscultation, abdomen soft and nontender. Mild left lower extremity swelling but no calf tenderness or erythema. Chest exam shows no rash, there is a midline surgical scar that is well healing, no erythema or pus drainage. Patient does describe his pain is more pleuritic in nature. However, his EKG shows a new T-wave inversion in V2. He does have concerning cardiac history. Repeat EKG showed worsening V2 T-wave inversion and a new T- wave inversion in V3. Patient has been given aspirin, nitroglycerin. We will also perform chest x-ray and troponin level. With concerning history and new EKG changes, we will consult cardiology and admit for further care. 11:[address] Ryan, assistant corporate secretary on-call. I discussed the patient presentation, history of bypass surgery, current symptoms. He requested that we start heparin at this time. I discussed starting heparin with the patient and he has no contraindications to starting this. Cardiology will act as a consult. Consult has been placed. We will admit to the hospitalist for further care. Vital Signs Temperature 97.8 F 10/29/17 09:29 Pulse Rate 60 10/29/17 09:29 Respiratory Rate 18 10/29/17 09:29 Blood Pressure 148/84 10/29/17 09:29 O2 Sat by Pulse Oximetry 95 10/29/17 09:29 Temperature 97.8 F 10/29/17 09:29 Pulse Rate 66 10/29/17 10:05 Respiratory Rate 18 10/29/17 10:05 Blood Pressure 113/73 10/29/17 10:05 O2 Sat by Pulse Oximetry 95 10/29/17 10:05 Oxygen Delivery Oxygen Delivery Room Air Chest Pain - MDM Narrative Medical decision making narrative: Patient was mildly hypertensive on presentation. Otherwise, the rest of the vitals were within normal limits. Physical exam shows heart regular rate and rhythm, lungs clear to auscultation, abdomen soft and nontender. Mild left lower extremity swelling but no calf tenderness or erythema. Chest exam shows no rash, there is a midline surgical scar that is well healing, no erythema or pus drainage. Patient does describe his pain is more pleuritic in nature. However, his EKG shows a new T-wave inversion in V2. He does have concerning cardiac history. Repeat EKG showed worsening V2 T-wave inversion and a new T- wave inversion in V3. Patient has been given aspirin, nitroglycerin. We will also perform chest x-ray and troponin level. With concerning history and new EKG changes, we will consult cardiology and admit for further care. 11:[address] Ryan, assistant corporate secretary on-call. I discussed the patient presentation, history of bypass surgery, current symptoms. He requested that we start heparin at this time. I discussed starting heparin with the patient and he has no contraindications to starting this. Cardiology will act as a consult. Consult has been placed. We will admit to the hospitalist for further care. - Medical Records Medical records reviewed: Yes I reviewed the patient's medical records. - Lab Data Lab results reviewed: Yes I reviewed the patient's lab results. Result diagrams: 10/29/17 10:02 10/29/17 10:02 Lab Results 10/29/17 10/29/17 10/29/17 Range/Units 10:02 10:02 10:02 WBC 8.9 (4.3-11.1) K/mcL RBC 4.98 (4.19-5.50) M/mcL Hgb 14.0 (12.9-16.9) g/dL Hct 41.9 (37.5-50.1) % MCV 84.1 (83.0-100.0) fL MCH 28.1 (28.0-33.3) pg MCHC 33.4 (31.6-35.5) g/dL RDW 13.9 (11.5-14.5) % Plt Count 269 (140-400) K/mcL MPV 10.4 (9.4-12.4) fL Immature Gran % 0.6 (0-4) % Seg Neutrophils % 58.0 % Lymphocytes % 19.6 % Monocytes % 14.2 % Eosinophils % 6.6 % Basophils % 1.0 % Neutrophils # 5.2 (1.6-8.9) K/mcL Lymphocytes # 1.8 (0.6-4.6) K/mcL Monocytes # 1.3 (0.0-1.3) K/mcL Eosinophils # 0.6 (0.0-0.6) K/mcL Basophils # 0.1 (0.0-0.2) K/mcL PT 11.4 (9.4-12.1) Seconds INR 1.1 APTT 28.7 (26.0-36.0) Seconds D-Dimer 379 (0-500) ng/mLFEU Sodium 138 (136-145) mEq/L Potassium 4.1 (3.5-5.1) mEq/L Chloride 110 H (98-107) mEq/L Carbon Dioxide 22 L (23-29) mEq/L BUN 20 (8-23) mg/dL Creatinine 0.78 (0.70-1.30) mg/dL Est GFR ( Amer) > 60 (> 60) Est GFR (Non-Af Amer) > 60 (> 60) BUN/Creatinine Ratio 26 (6-26) Glucose 111 H (70-105) mg/dL Calculated Osmolality 289 (280-300) Calcium 9.2 (8.6-10.3) mg/dL Troponin I < 0.03 (< 0.04) ng/mL - Radiology Data Radiology results reviewed: Yes I reviewed the patient's radiology results. Chest X-Ray 10/29/17 09:45 IMPRESSION: Mild interstitial edema. D/ / Eri Troncoso MD / Eri Troncoso MD Interpreting Provider: Eri Troncoso MD - EKG Data EKG attestation: Yes I reviewed and interpreted this EKG. EKG results narrative: 10/29/2017 at 09:32. Sinus bradycardia. Rate 58. UT 245. QRS 105. QTC 393. T-wave inversion in V1, V2. This is new in V2 from previous EKG on 08/22/2017 EKG #2. 10/29/2017 at 10:23. Sinus bradycardia. Rate 60. UT 1 249. QRS 106. QTC 424. Mild left axis deviation. No acute ST elevation or depression. T-wave inversion in V2 that is worsened from previous EKG, new T-wave inversion in lead V3 from EKG done this morning at 09:32. S.B.Sammi - Hyun.Skyler Situation: Demographics, MOA Background: Presenting Complaint, Relevant PMH, Meds, & Allergies Assessment: Vital Signs, Course and respsone to treatment, Exam Concerns, Patient/Family Expectation, Pertinant Lab Results Recommendation: Barrier(s) to disposition, Recommendation based on pending studies, treatments, or consults S.B.APrakashRPrakash Report Given to: Dr. Yosvany Salazar Repor Time: 11:49
[2017-10-29] MEDS ORDERED: Aspirin 81 MG TAB.CHEW PO ONE (09:45)
[2017-10-29] MEDS ORDERED: Nitroglycerin 0.4 MG TAB.SUBL SL PRN (09:46)
--- NOTE | 2017-10-29 10:03 | Emergency Department Note ---
Disposition Clinical Impression: Abnormal EKG Chest pain Qualifiers: Chest pain type: unspecified Qualified Code(s): R07.9 - Chest pain, unspecified Dyspnea Qualifiers: Dyspnea type: dyspnea on exertion Qualified Code(s): R06.09 - Other forms of dyspnea Disposition: Admitted As Inpatient Condition: Good General Adult HPI - General Chief complaint: ED Chest Pain Stated complaint: CP/FEI Time Seen by Provider: 10/29/17 09:30 Source: patient Limitations: no limitations - History of Present Illness Pain Scale: 3 - Related Data Home Medications Medication Instructions Recorded Confirmed Atorvastatin [Lipitor] 40 mg PO DAILY 10/29/17 10/29/17 Previous Rx's Medication Instructions Recorded Aspirin 81 mg PO DAILY #60 tab.chew 08/25/17 Metoprolol [Lopressor] 50 mg PO BID #60 tablet 08/25/17 Allergies Allergy/AdvReac Type Severity Reaction Status Date / Time Penicillins Allergy Hives Verified 10/29/17 09:28 Past Medical History - Past Medical History Medical history: Reports: hyperlipidemia Surgical history: Reports: orthopedic, other Psychiatric history: Reports: anxiety, depression - Social History Smoking Status: Former smoker Smokeless Tobacco Status: No Alcohol use: Reports: none Drug use: Reports: none Physical Exam - General Limitations: no limitations General appearance: alert, in no apparent distress Course Vital Signs Temperature 97.8 F 10/29/17 09:29 Pulse Rate 60 10/29/17 09:29 Respiratory Rate 18 10/29/17 09:29 Blood Pressure 148/84 10/29/17 09:29 O2 Sat by Pulse Oximetry 95 10/29/17 09:29 Temperature 97.6 F 10/29/17 19:24 Pulse Rate 107 10/29/17 19:24 Respiratory Rate 16 10/29/17 19:24 Blood Pressure 90/52 10/29/17 19:24 O2 Sat by Pulse Oximetry 96 10/29/17 19:24 Oxygen Delivery Oxygen Delivery Room Air Medical Decision Making - Lab Data Result diagrams: 10/29/17 10:02 10/29/17 10:02 Lab Results 10/29/17 10/29/17 10/29/17 Range/Units 10:02 10:02 10:02 WBC 8.9 (4.3-11.1) K/mcL RBC 4.98 (4.19-5.50) M/mcL Hgb 14.0 (12.9-16.9) g/dL Hct 41.9 (37.5-50.1) % MCV 84.1 (83.0-100.0) fL MCH 28.1 (28.0-33.3) pg MCHC 33.4 (31.6-35.5) g/dL RDW 13.9 (11.5-14.5) % Plt Count 269 (140-400) K/mcL MPV 10.4 (9.4-12.4) fL Immature Gran % 0.6 (0-4) % Seg Neutrophils % 58.0 % Lymphocytes % 19.6 % Monocytes % 14.2 % Eosinophils % 6.6 % Basophils % 1.0 % Neutrophils # 5.2 (1.6-8.9) K/mcL Lymphocytes # 1.8 (0.6-4.6) K/mcL Monocytes # 1.3 (0.0-1.3) K/mcL Eosinophils # 0.6 (0.0-0.6) K/mcL Basophils # 0.1 (0.0-0.2) K/mcL PT 11.4 (9.4-12.1) Seconds INR 1.1 APTT 28.7 (26.0-36.0) Seconds D-Dimer 379 (0-500) ng/mLFEU Sodium 138 (136-145) mEq/L Potassium 4.1 (3.5-5.1) mEq/L Chloride 110 H (98-107) mEq/L Carbon Dioxide 22 L (23-29) mEq/L BUN 20 (8-23) mg/dL Creatinine 0.78 (0.70-1.30) mg/dL Est GFR ( Amer) > 60 (> 60) Est GFR (Non-Af Amer) > 60 (> 60) BUN/Creatinine Ratio 26 (6-26) Glucose 111 H (70-105) mg/dL Calculated Osmolality 289 (280-300) Calcium 9.2 (8.6-10.3) mg/dL Troponin I < 0.03 (< 0.04) ng/mL Attestation Statement - Attestation Attestation: I examined this patient and my medical decision-making was reviewed with the [employer] OPERATOR/PA/Advanced Practice Nurse/Resident Physician. I agree with the documented findings, disposition and treatment plan as described except to the extent set forth below. I did see the patient spoke with him and examine him the patient did have a coronary artery bypass surgery in July and presents today with chest pain which is discomfort pressure feeling and is worse when he turns his body but does have some associated dyspnea. Occasional pleuritic aspect. No radiation to the back. Does have some intermittent swelling of the left lower extremity but he did have vein harvesting from the right lower extremity. I did review the EKG with some minimal ST changes but does not meet STEMI indication and the EKG will be repeated, labs including troponin and d-dimer, chest x-ray. His surgeon was Dr. Ward. Otherwise the patient is bright and alert and well in appearance with stable vital signs. 1002 I did review the patient's EKG which shows sinus bradycardia with a rate of 58 and compared to previous EKG there is a convex type appearance of the [address] as minimal ST elevation in lead aVF and so the EKG will be repeated. When I did compare this to previous EKG which was done August 22 of this year there is also ST elevation on that EKG in leads 3 and aVF. Today's inferior changes are not new. EKG will be repeated at this time. 1024 I did review the repeat EKG showing normal sinus rhythm with a rate of 60 and this EKG does have some more pronounced T-wave inversion anteriorly particularly in lead V3. Labs are pending. 1029
[2017-10-29 10:16] LABS: Basophils # 0.1 K/mcL (0.0-0.2); Eosinophils # 0.6 K/mcL (0.0-0.6); Eosinophils % 6.6 %; Hematocrit 41.9 % (37.5-50.1); Immature Granulocytes % 0.6 % (0-4); Lymphocytes # 1.8 K/mcL (0.6-4.6); Lymphocytes % 19.6 %; Mean Corpuscular HGB Conc 33.4 g/dL (31.6-35.5); Mean Corpuscular Hemoglobin 28.1 pg (28.0-33.3); Mean Corpuscular Volume 84.1 fL (83.0-100.0); Mean Platelet Volume 10.4 fL (9.4-12.4); Monocytes # 1.3 K/mcL (0.0-1.3); Monocytes % 14.2 %; Neutrophils # 5.2 K/mcL (1.6-8.9); Platelet Count 269 K/mcL (140-400); Red Blood Count 4.98 M/mcL (4.19-5.50); Red Cell Distribution Width 13.9 % (11.5-14.5)
[2017-10-29 10:25] LABS: INR 1.1; Prothrombin Time 11.4 Seconds (9.4-12.1)
[2017-10-29 10:27] LABS: Activated Partial Thrombo Time 28.7 Seconds (26.0-36.0)
[2017-10-29 10:37] LABS: BUN/Creatinine Ratio 26 (6-26); Blood Urea Nitrogen 20 mg/dL (8-23); Calcium 9.2 mg/dL (8.6-10.3); Carbon Dioxide 22 mEq/L (23-29); Chloride 110 mEq/L (98-107); Glucose 111 mg/dL (70-105); Osmolality,Calculated 289 (280-300); Potassium 4.1 mEq/L (3.5-5.1); Sodium 138 mEq/L (136-145); Troponin I < 0.03 ng/mL (< 0.04); eGFR For African Americans > 60 (> 60); eGFR For Non-African Americans > 60 (> 60)
[2017-10-29] MEDS ORDERED: *HR* Heparin 5,000 UNIT/ML VIAL IVP PRN ×2 (11:27)
[2017-10-29] MEDS ORDERED: *HR* Heparin 5,000 UNIT/ML VIAL IVP ONE (11:27)
[2017-10-29] MEDS: Heparin 25,000 UNIT/500 ML D5W 25,000 UNIT/500 ML BAG IVC SCH (11:59)
[2017-10-29] MEDS ORDERED: Naloxone 0.4 MG/ML INJ IVP PRN (14:28)
--- NOTE | 2017-10-29 14:42 | Internal Med History&Physical ---
<Gallo Charles J - Last Filed: 10/29/17 22:09> Date of Encounter: 10/29/17 Time of Encounter: 14:39 Internal Medicine - H&P: HPI Chief complaint: chest pain Admitted From: Home Plans for Post Hospital Care: Home History of present illness: Mr. Davidson is a 62 year old male with a PMH of HLD, CAD, CABG x3 (Jul 2017) who presents to [facility] ED today with retrosternal chest pain with radiation to the left chest and shortness of breath. The CP is described as sharp and worse with movement of B/L upper extremities. . He notices it with movement of his upper extremities. He also reports some mild dyspnea with activity which also improves with rest. He has a hx of recent CABG X3 in July [address] Ward. Denies any fevers, nausea, vomiting, productive cough, abdominal pain. He does admit to left leg swelling but no calf pain. Denies any previous history of DVT or PE. Past Med Surg Social Fam HX - Past Medical History Medical history: hyperlipidemia, other Psychiatric history: anxiety, depression - Past Surgical History Surgical History: orthopedic, other - Social History Smoking Status: Former smoker Smokeless Tobacco Status: No Alcohol use: none Drug use: none - Family History Mother Hx Family Cardiac Disorders: Yes (CAD) Internal Medicine - H&P: Meds Aspirin 81 mg PO DAILY #60 tab.chew 08/25/17 [Rx] Metoprolol [Lopressor] 50 mg PO BID #60 tablet 08/25/17 [Rx] Atorvastatin [Lipitor] 40 mg PO DAILY 10/29/17 [History] 3 Allergy/AdvReac Type Severity Reaction Status Date / Time Penicillins Allergy Hives Verified 10/29/17 09:28 All Systems PM: A 10-system review of systems was performed and is negative for pertinent findings except as documented above in the HPI. Review of systems: REVIEW OF SYSTEMS GENERAL: Negative for any nausea, vomiting, fevers, chills, or weight loss. NEUROLOGIC: Negative for any blurry vision, blind spots, double vision, facial asymmetry, dysphagia, dysarthria, hemiparesis, hemisensory deficits, vertigo, ataxia. HEENT: Negative for any head trauma, neck trauma, neck stiffness, photophobia, phonophobia, sinusitis, rhinitis. CARDIAC: Negative for any, paroxysmal nocturnal dyspnea, peripheral edema. Positive for retrosternal chest pain. Worsens with activity. Reports some exertional dyspnea. Denies any nausea or diaphoresis PULMONARY: Negative for any shortness of breath, wheezing, COPD, or TB exposure. GASTROINTESTINAL: Negative for any abdominal pain, nausea, vomiting, bright red blood per rectum, melena. GENITOURINARY: Negative for any dysuria, hematuria, incontinence. INTEGUMENTARY: Negative for any rashes, cuts, insect bites. RHEUMATOLOGIC: Negative for any joint pains, photosensitive rashes, history of vasculitis or kidney problems. HEMATOLOGIC: Negative for any abnormal bruising, frequent infections or bleeding. - Constitutional Vitals: Temp Pulse Resp BP Pulse Ox 97.8 F 66 16 120/7 97 10/29/17 09:29 10/29/17 13:23 10/29/17 13:23 10/29/17 13:23 10/29/17 13:23 General appearance: Present: cooperative, A&O X 3, no acute distress, answers questions appropriately Exam: PHYSICAL EXAMINATION: GENERAL: The patient is a well-developed, well-nourished male in no apparent distress. He is alert and oriented x3. HEENT: Head is normocephalic and atraumatic. Extraocular muscles are intact. Pupils are equal, round, and reactive to light and accommodation. NECK: Supple. No carotid bruits. No lymphadenopathy or thyromegaly. LUNGS: Clear to auscultation. HEART: Regular rate and rhythm without murmur. ABDOMEN: Soft, nontender, and nondistended. Positive bowel sounds. No hepatosplenomegaly was noted. EXTREMITIES: Without any cyanosis, clubbing, rash, lesions or edema. NEUROLOGIC: No facial droop, or slurred speech MUSCULOSKELETAL: Midsternal tenderness noted to be most tender over the xiphoid process. This is likely due to recent sternotomy SKIN: No ulceration or induration, rashes or bruising Internal Med - H&P Results - Labs CBC & Chem 7: 10/29/17 10:02 10/29/17 10:02 - EKG Data -: EKG Interpreted by Myself EKG shows normal: sinus rhythm - EKG Data When compared to previous EKG: there is no significant change EKG comments: Sinus rhythm with a first-degree AV block. There is some new ST depression in V2 otherwise no changes when compared to prior ECG 10/29/17 14:44 - Impressions Impressions Chest X-Ray 10/29/17 09:45 IMPRESSION: Mild interstitial edema. D/ / Eri Troncoso MD / Eri Troncoso MD Interpreting Provider: Eri Troncoso MD - Assessment and plan (1) Chest pain Current Visit: Yes Status: Acute Assessment and plan: ASSESSMENT: Presents today with retrosternal chest pain which has been ongoing over the last month. He reports CP that worsens with exertion and use of B/L upper extremities and that improves with rest. He also reports some mild dyspnea with activity which also improves with rest. He has a hx of recent CABG X3 in July [address] Ward. He is also reporting sternal tenderness which is worse at the xiphoid process. His initial troponin is negative at 0.03. His EKG shows some new t wave inversion in V2 when compared to prior EKG. Given his hx he is being admitted as observation status to rule out ACS PLAN: - cardiac enzymes x 2 q 2 hr - Continue ASA - Continue Metoprolol - O2 by NC to keep SpO2 greater than 92% PRN - CBCD, BMP in am - Resume home medication - Heparin gtt started in ED d/t new t-wave inversion in V2. Continue until further recommendation from cardiology - Cardiology consult- spoke with cardiology who has recommended a stress test in the am. Qualifiers: Chest pain type: unspecified Qualified Code(s): R07.9 - Chest pain, unspecified (2) Dyspnea Current Visit: Yes Status: Acute Assessment and plan: Reporting mild dyspnea on exertion. Concerning for ACS. See further planning above Qualifiers: Dyspnea type: dyspnea on exertion Qualified Code(s): R06.09 - Other forms of dyspnea (3) Coronary artery disease Current Visit: Yes Status: Acute Assessment and plan: Continue ASA, Statin and BB Qualifiers: Coronary Disease-Associated Artery/Lesion type: [place] artery [place] vs. transplanted heart: [place] heart Associated angina: with unstable angina Qualified Code(s): I25.110 - Atherosclerotic heart disease of [place] coronary artery with unstable angina pectoris (4) DVT prophylaxis Current Visit: Yes Status: Acute Assessment and plan: Continue heparin gtt - Time Spent With Patient Total time spent is greater than 50% in coordination of care (as documented) at patient's floor/unit and/or counseling patient: 25 - 35 minutes <Fabrizio Bar T - Last Filed: 10/30/17 10:07> Date of Encounter: 10/30/17 Internal Medicine - H&P: HPI History of present illness: Mr. Davidson is a 62 year old male All Systems PM: A 10-system review of systems was performed and is negative for pertinent findings except as documented above in the HPI. - Constitutional Vitals: Temp Pulse Resp BP Pulse Ox 98.1 F 70 18 116/70 92 10/30/17 09:30 10/30/17 09:30 10/30/17 09:30 10/30/17 09:30 10/30/17 09:30 Internal Med - H&P Results - Labs CBC & Chem 7: 10/30/17 00:33 10/30/17 00:33 Labs: Short CBC 10/30/17 Range/Units 00:33 WBC 9.3 (4.3-11.1) K/mcL Hgb 13.4 (12.9-16.9) g/dL Hct 40.5 (37.5-50.1) % Plt Count 254 (140-400) K/mcL BMP 10/30/17 00:33 Sodium 138 Potassium 3.9 Chloride 107 Carbon Dioxide 23 BUN 20 Creatinine 0.86 Glucose 110 H Calcium 9.1 Cardiac Enzymes 10/29/17 10/29/17 Range/Units 14:55 20:21 Troponin I < 0.03 < 0.03 (< 0.04) ng/mL - Attending Attestation The patient was independently examined and his records, labs, imaging and tests were personally reviewed. I agree with the BULK FOLDER's A&P. Despite his h/o recent CABG and current c/o chest pain his pain is reproducible with palpation over the sternotomy scar and movement (bending and twisting) which involve his thorax cage/sternum. Agree with overnight observation, telemetry, and continued trending of troponins. So far his ECG is not significantly different than prior ECGs with the excepthion of nonspecific ST changes. His CE are wnl so far and he reports no cp unless he moves his upper body in certain positions or his sternotomy scar is palpated. Cardiology was consulted by ER and he's hemodynamically stable. - Assessment and plan (1) Coronary artery disease Current Visit: Yes Status: Acute Qualifiers: Coronary Disease-Associated Artery/Lesion type: [place] artery [place] vs. transplanted heart: [place] heart Associated angina: with unstable angina Qualified Code(s): I25.110 - Atherosclerotic heart disease of [place] coronary artery with unstable angina pectoris (2) Chest pain Current Visit: Yes Status: Acute Qualifiers: Chest pain type: unspecified Qualified Code(s): R07.9 - Chest pain, unspecified (3) Dyspnea Current Visit: Yes Status: Acute Qualifiers: Dyspnea type: dyspnea on exertion Qualified Code(s): R06.09 - Other forms of dyspnea (4) DVT prophylaxis Current Visit: Yes Status: Acute - Time Spent With Patient Total time spent is greater than 50% in coordination of care (as documented) at patient's floor/unit and/or counseling patient:
--- NOTE | 2017-10-29 17:25 | Electrocardiograph Report ---
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
--- NOTE | 2017-10-29 17:27 | Electrocardiograph Report ---
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
[2017-10-30 01:14] LABS: Hematocrit 40.5 % (37.5-50.1); Hemoglobin 13.4 g/dL (12.9-16.9); Mean Corpuscular HGB Conc 33.1 g/dL (31.6-35.5); Mean Corpuscular Hemoglobin 27.8 pg (28.0-33.3); Mean Platelet Volume 10.7 fL (9.4-12.4); Platelet Count 254 K/mcL (140-400); Red Blood Count 4.82 M/mcL (4.19-5.50); Red Cell Distribution Width 13.9 % (11.5-14.5)
[2017-10-30 01:33] LABS: BUN/Creatinine Ratio 23 (6-26); Blood Urea Nitrogen 20 mg/dL (8-23); Calcium 9.1 mg/dL (8.6-10.3); Carbon Dioxide 23 mEq/L (23-29); Chloride 107 mEq/L (98-107); Glucose 110 mg/dL (70-105); Osmolality,Calculated 289 (280-300); Potassium 3.9 mEq/L (3.5-5.1); Sodium 138 mEq/L (136-145); eGFR For African Americans > 60 (> 60); eGFR For Non-African Americans > 60 (> 60)
[2017-10-30] MEDS: Heparin 25,000 UNIT/500 ML D5W 25,000 UNIT/500 ML BAG IVC SCH (07:00)
[2017-10-30] MEDS ORDERED: Aspirin 81 MG TAB.CHEW PO SCH (09:00)
[2017-10-30] MEDS: Regadenoson 0.4 MG/5 ML SYRINGE IVP ONE ×2 (09:08→10:57)
[2017-10-30 11:19] VITALS: BP 132/84
--- NOTE | 2017-10-30 13:34 | Internal Med Progress Note ---
Date of Encounter: 10/30/17 Time of Encounter: 13:33 - Assessment and plan (1) Coronary artery disease Current Visit: Yes Status: Acute Qualifiers: Coronary Disease-Associated Artery/Lesion type: [place] artery [place] vs. transplanted heart: [place] heart Associated angina: with unstable angina Qualified Code(s): I25.110 - Atherosclerotic heart disease of [place] coronary artery with unstable angina pectoris (2) Chest pain Current Visit: Yes Status: Acute Qualifiers: Chest pain type: unspecified Qualified Code(s): R07.9 - Chest pain, unspecified (3) Dyspnea Current Visit: Yes Status: Acute Qualifiers: Dyspnea type: dyspnea on exertion Qualified Code(s): R06.09 - Other forms of dyspnea (4) DVT prophylaxis Current Visit: Yes Status: Acute - Time Spent With Patient Total time spent is greater than 50% in coordination of care (as documented) at patient's floor/unit and/or counseling patient: - Subjective Interval history: Patient seen and examined at bedside. Resting in bed and denies any chest pain or discomfort at this time. S/P stress test today, awaiting report. Currently on heparin gtt. - Constitutional Vitals: Temp Pulse Resp BP Pulse Ox 97.6 F 63 17 132/84 94 10/30/17 11:16 10/30/17 11:16 10/30/17 11:16 10/30/17 11:16 10/30/17 11:16 General appearance: Present: cooperative, A&O X 3, no acute distress, obese, answers questions appropriately - Head Head exam: Present: atraumatic, normocephalic - Eye Eye exam: Present: conjuntiva pink, sclera anicteric - Respiratory Respiratory exam: Present: CTAB. Absent: accessory muscle use, rales, rhonchi, wheezes - Cardiovascular Cardiovascular exam: Present: RRR, +S1, +S2. Absent: diastolic murmur, gallop, rubs, systolic murmur - GI/Abdominal GI/Abdominal exam: Present: normal bowel sounds, soft, no peritoneal signs. Absent: distended, tenderness - Extremities Exam Extremities exam: Present: warm, radial pulses palpable and symmetrical. Absent : calf tenderness, pedal edema, tenderness - Neurological Exam Neurological exam: Present: oriented X3 - Psychiatric Psychiatric exam: Present: normal affect, normal mood Internal Medicine: Result - Labs CBC & Chem 7: 10/30/17 00:33 10/30/17 00:33 Labs: Short CBC 10/30/17 Range/Units 00:33 WBC 9.3 (4.3-11.1) K/mcL Hgb 13.4 (12.9-16.9) g/dL Hct 40.5 (37.5-50.1) % Plt Count 254 (140-400) K/mcL BMP 10/30/17 00:33 Sodium 138 Potassium 3.9 Chloride 107 Carbon Dioxide 23 BUN 20 Creatinine 0.86 Glucose 110 H Calcium 9.1 Cardiac Enzymes 10/29/17 10/29/17 Range/Units 14:55 20:21 Troponin I < 0.03 < 0.03 (< 0.04) ng/mL - ABG Interpretation ABG results: PT/INR, D-dimer PT 11.4 Seconds (9.4-12.1) 10/29/17 10:02 D-Dimer 379 ng/mLFEU (0-500) 10/29/17 10:02 Consult Discharge Plan - Plan Referrals: Santa Richardson CNP [Primary Care Provider] -
--- NOTE | 2017-10-30 14:03 | Cardiology Consult Note ---
<Augustin Mejia R - Last Filed: 10/30/17 14:03> Date of Encounter: 10/30/17 Time of Encounter: 14:02 Assessment and Plan (1) Chest pain Current Visit: Yes Status: Acute Presented with chest pain--1-2 times per week over the past 6 weeks, worse with movement of upper extremities and sometimes occurs on exertion. Could be secondary to healing s/p CABG/sternotomy. Troponin negative x 3. Stress test this AM negative for ischemia or infarct. Visual TID noted. TID can be concerning for multivessel CAD, however, pt has known [place] severe multivessel CAD and is s/p 3V CABG 07/2017. No EKG changes from prior. Continue ASA, Statin, BB. Recommend adding Imdur 30mg daily. Pt did not take nitro prior to admission. Also recommend utilizing nitro if recurrent chest pain. Will plan for close outpt follow-up in 1-2 weeks for re-evaluation. Anticipate sign off once seen and evaluated by Dr. Ryan. Qualifiers: Chest pain type: unspecified Qualified Code(s): R07.9 - Chest pain, unspecified (2) Coronary artery disease Current Visit: Yes Status: Acute As above, ASA, Statin, BB. Add Imdur. Qualifiers: Coronary Disease-Associated Artery/Lesion type: [place] artery [place] vs. transplanted heart: [place] heart Associated angina: with unstable angina Qualified Code(s): I25.110 - Atherosclerotic heart disease of [place] coronary artery with unstable angina pectoris Discussion w patient/family: The assessment and plan as outlined above was discussed with the patient and/or family members who expressed understanding and agreement. All questions were answered. Thank you for involving us in the care of your patient. Please call with any questions. I will discuss all the above with Dr. Ryan and make changes as necessary. History of Present Illness Consult date: 10/30/17 Requesting physician: Josee Sewell Consult reason: Chest pain, recent cabg Chief complaint: chest pain History of present illness: Mr. Davidson is a 62 year old male with PMH of HLD, CAD, CABG x3 (Jul 2017) who presented to [facility] ED todayyesterday with left sided chest pain described as pressure. Reports it is worse with movement of B/L upper extremities and also sometimes on exertion. Reports chest pain 1-2 times per week over the past 6 weeks. He reports exertional dyspnea. He did not utilize nitro at home. Chest pain free currently. Troponins were negative, no EKG changes. Stress test was ordered and completed this AM--no ischemia or infarct noted, but TID was noted. Cardiology consulted for further recommendations. Past Med Surg Social Fam HX - Past Medical History Medical history: coronary artery disease, hyperlipidemia, other Psychiatric history: anxiety, depression - Past Surgical History Surgical History: coronary bypass (CABG), orthopedic, other - Social History Smoking Status: Former smoker Smokeless Tobacco Status: No Alcohol use: none Drug use: none - Family History Mother Hx Family Cardiac Disorders: Yes (CAD) Medications and Allergies Aspirin 81 mg PO DAILY #60 tab.chew 08/25/17 [Rx] Metoprolol [Lopressor] 50 mg PO BID #60 tablet 08/25/17 [Rx] Atorvastatin [Lipitor] 40 mg PO DAILY 10/29/17 [History] Isosorbide MONOnitrate (24 HR) [Imdur] 30 mg PO DAILY #30 tab.er.24h 10/30/17 [ Rx] 3 Allergy/AdvReac Type Severity Reaction Status Date / Time Penicillins Allergy Hives Verified 10/29/17 09:28 All Systems Review: The remainder of the systems were reviewed and are negative - Cardiovascular Cardiovascular: as per HPI, chest pain at rest, chest pain with exertion, dyspnea on exertion Physical Examination Vital Signs, Last 4 Hours Temp Pulse Resp BP Pulse Ox 10/30/17 11:16 97.6 F 63 17 132/84 94 Vital Signs Temp Pulse Resp BP Pulse Ox 10/30/17 11:16 97.6 F 63 17 132/84 94 10/30/17 09:30 98.1 F 70 18 116/70 92 10/30/17 04:07 97.4 F L 66 15 112/71 94 10/30/17 00:48 98 F 63 16 106/60 94 10/29/17 19:24 97.6 F 107 16 90/52 96 10/29/17 19:09 98 F 77 16 102/64 93 10/29/17 15:04 97.4 F L 64 16 150/81 95 Intake and Output 10/29/17 10/30/17 10/30/17 23:59 07:59 15:59 Intake Total 388 / 388 352 / 352 20 / 20 Output Total 0 / 0 Balance 388 / 388 352 / 352 20 / 20 Intake: IV Fluids 148 / 148 352 / 352 20 / 20 Heparin 25,000 UNIT/500 ML D5W 148 / 148 352 / 352 / 20 25,000 unit In 500 ml @ 12 UNIT /KG/HR 24.821 mls/hr IVC . Q20H9M EMANUEL Rx#:[id number] Oral 240 / 240 Output: Urine 0 / 0 Other: Meal Lunch npo Percent of Meal Consumed 100% # Voids 0 1 Weight 70.579 kg 101.151 kg Patient Weight 10/30/17 23:59 Weight 101.151 kg General: Conversant, No Apparent Distress HEENT: Atraumatic, Normocephaly, Mucus Membranes Moist Neck: No JVD, Normal carotid pulses Cardiac: Reg Rate and Rhythm, Normal S1 and S2, No Murmur Lungs: Normal Breath Sounds, No Wheeze, Rales, Rhonchi Neuro: Alert and responsive, No focal deficits noted Abdomen: Soft, Non-Tender Skin: No rashes noted on visualized skin Musculoskeletal: No Chest Wall Tenderness Extremities: No Clubbing, No Cyanosis, No Edema, Normal Pulses Results 10/30/17 00:33 10/30/17 00:33 Lab Results 10/29/17 10/29/17 10/29/17 14:55 17:55 20:21 WBC Hgb Hct Plt Count APTT 53.0 H D Sodium Potassium Chloride Carbon Dioxide BUN Creatinine Glucose Calcium Troponin I < 0.03 < 0.03 10/30/17 10/30/17 10/30/17 00:33 00:33 00:33 WBC 9.3 Hgb 13.4 Hct 40.5 Plt Count 254 APTT 78.5 H Sodium 138 Potassium 3.9 Chloride 107 Carbon Dioxide 23 BUN 20 Creatinine 0.86 Glucose 110 H Calcium 9.1 Troponin I 10/30/17 06:12 WBC Hgb Hct Plt Count APTT 73.4 H Sodium Potassium Chloride Carbon Dioxide BUN Creatinine Glucose Calcium Troponin I Short CBC 10/30/17 Range/Units 00:33 WBC 9.3 (4.3-11.1) K/mcL Hgb 13.4 (12.9-16.9) g/dL Hct 40.5 (37.5-50.1) % Plt Count 254 (140-400) K/mcL BMP 10/30/17 Range/Units 00:33 Sodium 138 (136-145) mEq/L Potassium 3.9 (3.5-5.1) mEq/L Chloride 107 (98-107) mEq/L Carbon Dioxide 23 (23-29) mEq/L BUN 20 (8-23) mg/dL Creatinine 0.86 (0.70-1.30) mg/dL Glucose 110 H (70-105) mg/dL Calcium 9.1 (8.6-10.3) mg/dL Cardiac Enzymes 10/29/17 10/29/17 Range/Units 20:21 14:55 Troponin I < 0.03 < 0.03 (< 0.04) ng/mL Active Medications Aspirin (Aspirin) 81 mg PO DAILY EMANUEL Stop: 05/01/18 09:01 Last Admin: 10/30/17 09:19 Dose: 81 mg Atorvastatin Calcium (Lipitor) 40 mg PO DAILY EMANUEL Stop: 05/01/18 09:01 Last Admin: 10/30/17 09:19 Dose: 40 mg Heparin Sodium (Porcine) (Heparin) 4,000 unit IVP Q6HR PRN PRN Reason: SEE COMMENTS Stop: 04/30/18 11:28 Heparin Sodium (Porcine) (Heparin) 2,000 unit IVP Q6H PRN PRN Reason: SEE COMMENTS Stop: 04/30/18 11:28 Last Admin: 10/29/17 18:33 Dose: 2,000 unit Heparin Sodium/Dextrose (Heparin 25,000 Unit/500 Ml D5w) 25,000 unit in 500 mls @ 24.821 mls/hr IVC .Q20H9M EMANUEL; 12 UNIT/KG/HR PRN Reason: Protocol Stop: 04/30/18 11:31 Last Titration: 10/30/17 08:13 Dose: 13.92 unit/kg/hr, 28.792 mls/hr Metoprolol Tartrate (Lopressor) 50 mg PO BID EMANUEL Stop: 04/30/18 21:01 Last Admin: 10/30/17 09:19 Dose: 50 mg Naloxone HCl (Narcan) 0.4 mg IVP Q2MIN PRN PRN Reason: SEE COMMENTS Stop: 04/30/18 14:29 Nitroglycerin (Nitroglycerin) 0.4 mg SL Q5MIN PRN PRN Reason: Chest Pain Stop: 04/30/18 09:47 Last Admin: 10/29/17 10:04 Dose: 0.4 mg - Imaging and Cardiology Stress Test: report reviewed Echo: report reviewed Cardiac cath: report reviewed - EKG Interpretation EKG results cardiology: personally reviewed (SR, 1st degree block), other (12 hr tele AVG HR 66, SR, no significant pauses or arrhythmias noted.) Consult Discharge Plan - Plan Referrals: Santa Richardson CNP [Primary Care Provider] - 11/05/17 1:00 pm Prescriptions: Isosorbide MONOnitrate (24 HR) [Imdur] 30 mg PO DAILY #30 tab.er.24h <Bekah Ryan - Last Filed: 10/30/17 16:13> Date of Encounter: 10/30/17 - Attending Attestation I have personally performed a face to face evaluation on this patient. I have reviewed and agree with the care plan. History and Exam by me shows: 62-year-old male status post CABG July 2017 presents for atypical almost noncardiac chest pain. Reproducible upon deep palpation and slightly positional. Chest pain improves with activity likely noncardiac. Stress test reveals TID Status post CABG likely false positive. Patient follow-up with cardiology one week for further evaluation. Assessment and Plan Discussion w patient/family: The assessment and plan as outlined above was discussed with the patient and/or family members who expressed understanding and agreement. All questions were answered. Thank you for involving us in the care of your patient. Please call with any questions. History of Present Illness History of present illness: Mr. Davidson is a 62 year old male All Systems Review: The remainder of the systems were reviewed and are negative Results 10/30/17 00:33 10/30/17 00:33 Lab Results 10/29/17 10/29/17 10/30/17 17:55 20:21 00:33 WBC 9.3 Hgb 13.4 Hct 40.5 Plt Count 254 APTT 53.0 H D Sodium Potassium Chloride Carbon Dioxide BUN Creatinine Glucose Calcium Troponin I < 0.03 10/30/17 10/30/17 10/30/17 00:33 00:33 06:12 WBC Hgb Hct Plt Count APTT 78.5 H 73.4 H Sodium 138 Potassium 3.9 Chloride 107 Carbon Dioxide 23 BUN 20 Creatinine 0.86 Glucose 110 H Calcium 9.1 Troponin I
[2017-10-30] MEDS ORDERED: Isosorbide MONOnitrate (24 HR) 30 MG TAB.ER.24H PO SCH (14:30)
--- NOTE | 2017-10-30 16:11 | Discharge Summary ---
- NOTES TO OUTPATIENT PROVIDER Notes to Outpatient Provider: Patient started on Imdur during this hospitalization Orders not resulted at time of discharge: Pending orders 10/29/17 19:08 NM kristal perf SPECT multi [NM] Routine 10/31/17 06:12 Activated Partial Thrombo Time [COAG] Timed Date of Encounter: 10/30/17 Time of Encounter: 13:32 - Discharge Diagnosis (1) Coronary artery disease Priority: Secondary Status: Chronic Qualifiers: Coronary Disease-Associated Artery/Lesion type: [place] artery [place] vs. transplanted heart: [place] heart Associated angina: with unstable angina Qualified Code(s): I25.110 - Atherosclerotic heart disease of [place] coronary artery with unstable angina pectoris (2) Chest pain Priority: Primary Status: Acute Qualifiers: Chest pain type: unspecified Qualified Code(s): R07.9 - Chest pain, unspecified (3) Dyspnea Priority: Secondary Status: Resolved Qualifiers: Dyspnea type: dyspnea on exertion Qualified Code(s): R06.09 - Other forms of dyspnea (4) DVT prophylaxis Priority: Secondary Status: Acute Hospital course: Mr. Davidson is a 62 year old male with PMH Of HLD, CAD, CABG x 3 (jul 2017) who was admitted for evaluation of chest pain. He underwent nuclear stress test which was negative for any ischemic perfusion defect however visual transient ischemic dilatation was noted. Cardiology evaluated the patient. Imdur was added to the home medications and cardiology signed off and recommended outpatient follow up. Pt is hemodynamically stable and denies any chest pain at this time. He will be discharged to home with outpatient follow up with PCP and cardiology. pt demonstrates understanding of his diagnosis and agree with the discharge care and plan. Physical Exam: General appearance: Present: cooperative, A&O X 3, no acute distress, obese, answers questions appropriately - Head Head exam: Present: atraumatic, normocephalic - Eye Eye exam: Present: conjuntiva pink, sclera anicteric - Respiratory Respiratory exam: Present: CTAB. Absent: accessory muscle use, rales, rhonchi, wheezes - Cardiovascular Cardiovascular exam: Present: RRR, +S1, +S2. Absent: diastolic murmur, gallop, rubs, systolic murmur - GI/Abdominal GI/Abdominal exam: Present: normal bowel sounds, soft, no peritoneal signs. Absent: distended, tenderness - Extremities Exam Extremities exam: Present: warm, radial pulses palpable and symmetrical. Absent : calf tenderness, pedal edema, tenderness - Neurological Exam Neurological exam: Present: oriented X3 - Psychiatric Psychiatric exam: Present: normal affect, normal mood Discharge discussed with: patient, nurse - Time Spent with Patient Total time spent providing and/or coordinating discharge services: Greater than 30 minutes - Discharge Medications Prescriptions: Isosorbide MONOnitrate (24 HR) [Imdur] 30 mg PO DAILY #30 tab.er.24h Home Medications: Aspirin 81 mg PO DAILY #60 tab.chew 08/25/17 [Rx] Metoprolol [Lopressor] 50 mg PO BID #60 tablet 08/25/17 [Rx] Atorvastatin [Lipitor] 40 mg PO DAILY 10/29/17 [History] Isosorbide MONOnitrate (24 HR) [Imdur] 30 mg PO DAILY #30 tab.er.24h 10/30/17 [ Rx] Allergies/Adverse Reactions: 3 Allergy/AdvReac Type Severity Reaction Status Date / Time Penicillins Allergy Hives Verified 10/29/17 09:28 Date of admission: 10/29/17 12:39 Primary care physician: Santa Richardson, Consults: 10/29/17 14:46 Consult to Cardiology [CONS] Routine Comment: CHEST PAIN Consulting Provider: Giovanni Anderson Reason for Consult: CHEST PAIN Time Notified: 14:46 Call Completed: Yes Discharging clinician: Josee Sewell Anticipated date of discharge: 10/30/17 - Constitutional Vitals: Temp Pulse Resp BP Pulse Ox 97.6 F 63 17 132/84 94 10/30/17 11:16 10/30/17 11:16 10/30/17 11:16 10/30/17 11:16 10/30/17 11:16 General appearance: Present: cooperative, A&O X 3, no acute distress, answers questions appropriately - Patient Status Disposition: Home, Self-Care Condition: Good Functional capacity at discharge: independent ambulation Overall status at discharge: patient is back to baseline - Discharge Instructions Follow Up With: Santa Richardson CNP [Primary Care Provider] - 11/05/17 1:00 pm Additional Instructions: Please follow up with your primary care physician within five days after your discharge from the hospital. Please follow up with cardiology within one to two weeks after your discharge from the hospital. Imdur 30mg Once a day has been added to your home medications. Prescription has been sent to your preferred pharmacy. Please continue your home dose of aspirin, lipitor, and metoprolol. Please seek medical help immediately if chest pain reoccurs. - Diet and Activity Activity: resume usual activities as tolerated Diet: low fat, low cholesterol, low salt diet
[2017-10-30] MEDS ORDERED: *HR* Heparin 5,000 UNIT/ML VIAL SQ SCH (18:00)
== END 2017-10-30 16:34 | disposition home or self-care (01) ==
LOC: EDBD → EMEROO 09:26 → 2SOUTHHOLD 09:26 → 2ANU 14:15
PROVIDERS: ADMIT Nurse Practitioner; ATTEND Internal Medicine